=== PATIENT | female | born 1965 | race Caucasian/White ===

== ENCOUNTER 2019-12-03 08:02 | Outpatient (CLI) | payer MEDICARE, SELFPAY ==
--- NOTE | 2019-12-03 11:00 | NEURO_ITS ---
Patient Number: [id number] Impression: # Complains of difficulties in walking. 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 # Right ulnar neuropathy across the elbow. Nerve Conduction Studies Anti Sensory Summary Table Stim Site NR Peak (ms) P-T Amp (?V) Site1 Site2 Delta-P (ms) Dist (cm) Simon (m/s) Left Median Anti Sensory (2-3nd Digit) Wrist 3.1 69.4 Wrist 2-3nd Digit 3.1 14.0 45 Wrist 3.1 73.5 Wrist 2-3nd Digit 3.1 14.0 45 Right Median Anti Sensory (2-3nd Digit) Wrist 2.8 69.2 Wrist 2-3nd Digit 2.8 14.0 50 Wrist 2.9 67.5 Wrist 2-3nd Digit 2.8 14.0 50 Left Radial Anti Sensory (Base 1st Digit) Wrist 1.9 48.1 Wrist Base 1st Digit 1.9 0.0 Right Radial Anti Sensory (Base 1st Digit) Wrist 2.2 21.5 Wrist Base 1st Digit 2.2 0.0 Left Sup Fibular Anti Sensory (Ant Lat Mall) 14 cm 3.7 3.6 14 cm Ant Lat Mall 3.7 16.0 43 Right Sup Fibular Anti Sensory (Ant Lat Mall) 14 cm 3.5 12.4 14 cm Ant Lat Mall 3.5 16.0 46 Left Sural Anti Sensory (Lat Mall) Calf 4.1 9.8 Calf Lat Mall 4.1 16.0 39 Right Sural Anti Sensory (Lat Mall) Calf 3.8 6.9 Calf Lat Mall 3.8 16.0 42 Left Ulnar Anti Sensory (5th Digit) Wrist 2.6 53.9 Wrist 5th Digit 2.6 14.0 54 Right Ulnar Anti Sensory (5th Digit) Wrist 2.4 84.0 Wrist 5th Digit 2.4 14.0 58 Motor Summary Table Stim Site NR Onset (ms) O-P Amp (mV) Site1 Site2 Delta-0 (ms) Dist (cm) Simon (m/s) Left Median Motor (Abd Poll Brev) Wrist 3.9 3.2 Elbow Wrist 4.9 28.0 57 Elbow 8.8 2.0 Right Median Motor (Abd Poll Brev) Wrist 3.3 7.8 Elbow Wrist 4.7 28.0 60 Elbow 8.0 6.5 Left Peroneal Motor (Vastus Med) Ankle 4.7 1.6 Popit Ankle 10.9 41.0 38 Popit 15.6 1.2 Right Peroneal Motor (Vastus Med) Ankle 4.6 1.1 Popit Ankle 10.6 41.0 39 Popit 15.2 0.8 Left Tibial Motor (Abd Lyle Brev) Ankle 5.5 5.5 Knee Ankle 12.9 45.0 35 Knee 18.4 1.7 Right Tibial Motor (Abd Lyle Brev) Ankle 5.3 1.7 Knee Ankle 11.2 44.0 39 Knee 16.5 0.7 Left Ulnar Motor (Abd Dig Minimi) Wrist 2.5 3.8 A Elbow Wrist 5.7 32.0 56 A Elbow 8.2 3.1 Right Ulnar Motor (Abd Dig Minimi) Wrist 2.8 5.5 A Elbow Wrist 6.0 29.0 48 A Elbow 8.8 3.2 B Elbow Wrist 4.2 22.0 52 B Elbow 7.0 4.3 F Wave Studies NR F-Lat (ms) L-R F-Lat (ms) Left Median (Mrkrs) (Abd Poll Brev) 29.81 0.71 Right Median (Mrkrs) (Abd Poll Brev) 29.10 0.71 Left Peroneal (Mrkrs) (EDB) 59.18 1.05 Right Peroneal (Mrkrs) (EDB) 58.13 1.05 Left Tibial (Mrkrs) (Abd Hallucis) 60.99 1.68 Right Tibial (Mrkrs) (Abd Hallucis) 59.31 1.68 Left Ulnar (Mrkrs) (Abd Dig Min) 29.63 0.41 Right Ulnar (Mrkrs) (Abd Dig Min) 30.04 0.41 EMG Side Muscle Nerve Root Ins Act Fibs Amp Dur Recrt Comment Right 1stDorInt Ulnar C8-T1 Nml Nml Decr >12ms Reduced Right Ext Indicis Radial (Post Int) C7-8 Nml Nml Nml Nml Nml Right Ext Digitorum Radial (Post Int) C7-8 Nml Nml Decr >12ms Reduced Right BrachioRad Radial C5-6 Nml Nml Nml Nml Nml Right PronatorTeres Median C6-7 Nml Nml Nml Nml Nml Right Abd Poll Brev Median C8-T1
== END 2019-12-03 08:03 | disposition home or self-care (01) ==
PROVIDERS: PCP Family Medicine; Visit Provider Psychiatry & Neurology Neurology
DX: G62.9 Polyneuropathy, unspecified (principal); R42 Dizziness and giddiness; G56.21 Lesion of ulnar nerve, right upper limb
CPT/HCPCS: 95886; 95913

== ENCOUNTER 2020-02-18 11:44 | Outpatient (CLI) | payer MEDICARE, SELFPAY ==
[2020-02-18 12:14] LABS: Blood Urea Nitrogen 11 mg/dL (7-17); Carbon Dioxide 28 mmol/L (22-30); Chloride 101 mmol/L (98-107); Estimated Glomerular Filt Rate > 60; Glucose 174 mg/dL (65-105); Potassium 4.1 mmol/L (3.4-5.0); Sodium 136 mmol/L (137-145)
[2020-02-18 12:27] LABS: Hemoglobin A1C 7.6 % (<5.7)
[2020-02-18 13:02] LABS: Free T4 Free Thyroxine 0.86 ng/mL (0.78-2.19)
[2020-02-22 06:54] LABS: Triiodothyronine T3 Free 2.6 pg/mL (2.3-4.2)
== END 2020-02-18 11:45 | disposition home or self-care (01) ==
PROVIDERS: PCP Family Medicine; Visit Provider Family Medicine
DX: E11.9 Type 2 diabetes mellitus without complications (principal); G60.0 Hereditary motor and sensory neuropathy
CPT/HCPCS: 36415; 80048; 83036; 84439; 84443; 84481

== ENCOUNTER 2020-10-13 07:43 | Outpatient (CLI) | payer MEDICARE, SELFPAY ==
--- NOTE | ~2020-10-13 | MM_ITS ---
EXAMINATION: MM screening aida BI w marian HISTORY: Screening mammogram TECHNIQUE: Craniocaudal and mediolateral oblique 3-D tomosynthesis images were obtained and synthetic 2-D images were generated. CAD analysis was submitted and interpreted. COMPARISON: bilateral digital screening mammogram examinations BREAST PARENCHYMAL COMPOSITION: The breasts are almost entirely fatty. FINDINGS: There is no evidence of suspicious mass, calcification, or architectural distortion to sugg est malignancy in either breast. There has been no suspicious interval change. IMPRESSION: 1. No mammographic evidence of malignancy. 2. Recommend routine screening mammography in one year. BI-RADS Category 1: Negative Reviewed, dictated and finalized at location A. ET SWEEPER
--- NOTE | ~2020-10-13 | DEXA_ITS ---
Bone Density Report Name: Julia Adames Age: 55 Sex: Female Ethnicity: White Date of : 1965 Indication: postmenopausal; height loss; prior fracture; hysterectomy; Referring Provider: Denilson Garcia Study: Bone densitometry was performed. Exam Date: October 13, 2020 Accession number: [id number] Bone Density: Region BMD T-score Z-score Classification AP Spine (L1, L2, L3) 1.263 2.2 3.3 Normal Femoral Neck (Left) 0.815 -0.3 0.8 Normal Total Hip (Left) 0.882 -0.5 0.2 Normal Total Hip Bilateral Avg 0.818 -1.1 -0.3 Osteopenia Femoral Neck (Right) 0.698 -1.4 -0.3 Osteopenia Total Hip (Right) 0.752 -1.6 -0.8 Osteopenia World Health Organization criteria for BMD impression classify patients as: Normal (T-score at or above -1.0), Osteopenia (T-score between -1.0 and -2.5), or Osteoporosis (T-score at or below -2.5). 10-year Fracture Risk(1): Major Osteoporotic Fracture 10% Hip Fracture 1.2% Reported Risk Factors: [place] (), Neck BMD=0.698, BMI=39.5, previous fracture, smoking Input outside FRAX(R) limits. Adjusted to:Abhfoq=709 kg (1) FRAX(R) Version 3.08. Fracture probability calculated for an untreated patient. Fracture probability may be lower if the patient has received treatment. Clinical Information Provided by Patient: Has had a low trauma fracture Smokes Has used the following medications: Vitamin D Has the following medical conditions: Hysterectomy Patient maximum height was 72 Menopause Age: 43 No regular weight bearing exercise Drinks caffeinated beverages Onset of menses at age 9 Number of children 1 Impression: The patient has low bone mass, based on the Right Total Hip T-score. The patient has an estimated ten-year risk of hip fracture of 1.2% and an estimated ten-year risk of major fracture of 10%, based on the WHO FRAX algorithm. The patient has risk factors, including: smoking, previous fracture. Discussion: BONE DENSITY IS LOW AT ONE OR MORE SKELETAL SITES. This patient's lowest T-score is low at one or more skeletal sites. It meets the World Health Organization's (WHO) criteria for ?low bone mass? (T-score between -1.0 and -2.5). The patient's 10-year risk of fracture as calculated by FRAX is less than the threshold where pharmacological therapy is recommended by the National Osteoporosis Foundation (NOF). However, all treatment decisions require clinical judgment and consideration of individual patient factors, including patient preferences, comorbidities, previous drug use, risk factors not captured in the FRAX model (e.g., frailty, falls, vitamin D deficiency, increased bone turnover, interval significant decline in bone density) and possible under or overestimation of fracture risk by FRAX. The patient should follow a healthful lifestyle (good nutrition with adequat
== END 2020-10-13 07:44 | disposition home or self-care (01) ==
LOC: ANHIMG 07:46
PROVIDERS: PCP Physician Assistant; Visit Provider Physician Assistant
DX: Z12.31 Encounter for screening mammogram for malignant neoplasm of breast (principal); Z78.0 Asymptomatic menopausal state; M85.89 Other specified disorders of bone density and structure, multiple sites
CPT/HCPCS: 77063; 77067; 77080

== ENCOUNTER 2021-04-27 09:04 | Outpatient (CLI) | payer MEDICARE, SELFPAY ==
--- NOTE | 2021-04-30 15:56 | WPDSLEEPSTUD ---
Sleep Study Date of Study: 04/27/21 Ordering Provider: Darcy Mckeon MD Interpreting Physician: Flores Luna MD Sleep Study Type: CPAP Titration Height: 1.78 m Weight: 133.326 kg Body Mass Index: 42.1 Neck Circumference (inches): 19 [place]: 6 Reason for Sleep Study HST from [facility] showing mild obstructive sleep apnea with an AHI 9.8, minimum saturation 86%, and 72 minutes or 28% of the study spent below 88%. She presents for a CPAP titration. Sleep History Julia Adames is a 56 year old female with sleep testing that shows obstructive sleep apnea. No sleep questionnaire was completed. She has multiple medical co-morbidities including diabetes with peripheral neuropathy, Jpkmgcs-Icibt-Fmyrv muscular atrophy, hypertension. [facility] Past Medical History Medical History Asthmatic bronchitis (~09/2017) Charcot Romi Tooth muscular atrophy Chronic pain Depression Dizziness Resolved currently. Has appointment with neurology in September. ENT was unable to pinpoint a HEENT issue to her problem. Call for any worsening issues Frequent falls Hyperkalemia Hyperlipidemia Hypertension Hyponatremia Otitis media (~07/2018) Peripheral neuropathy Type 2 diabetes mellitus URI, acute (~05/2019) Urinary symptom or sign Surgical History Surgical History H/O total hysterectomy (~2009) History of total knee arthroplasty (~12/2015) right knee Hx of cataract extraction (~2020) - both eyes Hx of section (~07/2003) Hx of total knee arthroplasty (~02/2016) left knee Family History Family History Mother Family history of hypercholesterolemia Sibling Family history of cardiovascular disease Social History Social History Smoking status: Never smoker Tobacco type: e-cigarettes/vaping Second hand tobacco smoke exposure: Yes Alcohol intake: never Substance use: never Substance use type: does not use Gender identity (if verbalized by the patient): Female Medications Home Medications Medication Instructions Recorded Confirmed Type albuterol sulfate 90 mcg/actuation 1 inhalation INHALATION Q4H #6.7 gm 11/01/19 08/06/21 Rx aerosol inhaler calcium carbonate 400 mg calcium 400 mg PO DAILY 03/08/21 04/28/21 History (1,000 mg) chewable tablet cholecalciferol (vitamin D3) 125 125 mcg PO DAILY 03/08/21 04/28/21 History mcg (5,000 unit) capsule multivitamin 1 tablet PO DAILY 03/08/21 04/28/21 History naloxone 4 mg/actuation nasal spray 1 spray INTRANASAL Q3M PRN #2 ea 03/10/21 04/28/21 Rx pioglitazone 45 mg tablet 45 mg PO DAILY #90 tablet 03/28/21 04/28/21 Rx alcohol swabs 1 pad TOPICAL DAILY #100 ea 04/14/21 04/28/21 Rx atorvastatin 40 mg tablet 40 mg PO DAILY #90 tablet 04/14/21 04/28/21 Rx blood glucose control, normal #1 ea 04/14/21 04/28/21 Rx blood sugar diagnostic #100 ea 04/14/21 04/28/21 Rx blood-glucose meter #1 ea 04/14/21 04/28/21 Rx citalopram 40 mg tablet 40 mg PO DAILY #90 tablet 04/14/21 04/28/21 Rx cyclobenzaprine 10 mg tablet 10 mg PO TID PRN #90 tablet 04/14/21 04/28/21 Rx gabapentin 300 mg capsule 900 mg PO .QHS #270 cap 04/14/21 04/28/21 Rx lancets 33 gauge #100 ea 04/14/21 04/28/21 Rx metformin 500 mg tablet,extended See Rx Instructions .ROUTE 04/14/21 04/28/21 Rx release 24 hr .COMPLEX #360 tablet potassium chloride 10 mEq 10 meq PO BID #180 tablet 04/14/21 04/28/21 Rx tablet,extended release hydromorphone 8 mg tablet 8 mg PO TID #90 tablet 04/24/21 04/28/21 Rx hydromorphone 2 mg tablet 4 mg PO .HS #90 tablet 04/28/21 04/28/21 Rx glimepiride 2 mg tablet 2 mg PO QAM #90 tablet 05/01/21 Rx Sleep Procedure This test was performed using the [employer] multiple channel system including EOG, EEG, submental EMG, EKG, nasal and oral air
[2021-05-01 10:25] VITALS: BMI 42.1
== END 2021-04-28 05:08 | disposition home or self-care (01) ==
LOC: ANHCSM 09:06
PROVIDERS: PCP Family Medicine; Visit Provider Family Medicine
DX: G47.33 Obstructive sleep apnea (adult) (pediatric) (principal)
CPT/HCPCS: 95811

== ENCOUNTER 2022-02-22 09:20 | Outpatient (CLI) | payer MEDICARE, SELFPAY ==
--- NOTE | 2022-02-22 16:24 | WPDSIXMINUTE ---
Six Minute Walk Procedure Procedure Performed Pulmonary Stress Test (6 min walk) Six Minute Walk Six Minute Walk: This is a 6 minute walk test. The test was performed and interpreted in accordance with the 2014 ERS/ATS task force guidelines. Of note the patient used a wheeled walker. Findings: The patient's resting room air oxygen saturation measured by pulse oximetry was 94% and heart rate was 89 bpm. Patient ambulated for 335 meters and oxygen saturation remained 91 to 94%. Heart rate at the end of the study was 120 bpm. The patient did not qualify for supplemental oxygen at rest or with ambulation. There are no prior studies for comparison.
--- NOTE | 2022-02-22 16:25 | WPDPFTINT ---
PFT Procedure Performed PFT Procedure Performed Spirometry with Pre/Post Bronchodilator Plethysmography (Lung Vol) Diffusing Cap (DLCO) Flow Vol Loop PFT Interpretation This is a pulmonary function test with pre and post-bronchodilator spirometry, plethysmography and diffusing capacity. The test was performed and results interpreted in accordance with the 2019 and 2005 ATS/ERS Task Force guidelines respectively using the Global Lung Function Initiative-2012 reference equations. Patient demonstrated good effort and cooperation. Reproducibility criteria were met. The quality of the pre bronchodilator spirometry maneuver was Grade A and post bronchodilator spirometry maneuver was Grade A. Findings: Spirometry: The contour the inspiratory and expiratory flow tracing are normal. The pre bronchodilator FVC is 3.33 L, 83% predicted. The pre bronchodilator FEV1 is 2.65 L, 85% predicted. The pre bronchodilator FEV1: FVC ratio 79%. The post bronchodilator FVC is 3.17 L, representing a 5% decrease. The post bronchodilator FEV1 is 2.64 L, representing no change. The post bronchodilator FEV1 is 83%. Plethysmography: The total lung capacity is 4.84 L, 81% predicted. The functional residual capacity is 1.83 L, 54% predicted. The residual volume is 1.29 L, 58% predicted. Diffusing capacity: The diffusing capacity unadjusted for hemoglobin and carboxyhemoglobin is 21.1, 87% predicted. The diffusing capacity adjusted for alveolar volume is 4.30, 102% predicted. Impression: There is a mild restrictive ventilatory abnormality with a normal FEV1. The spirometry is normal without evidence of an obstructive abnormality. There is no significant improvement after inhaling a single dose of albuterol. The diffusing capacity is normal. There are no prior studies for comparison
== END 2022-02-22 09:21 | disposition home or self-care (01) ==
LOC: ANHPFT 09:20
PROVIDERS: PCP Family Medicine; Visit Provider Internal Medicine Critical Care Medicine
DX: R06.02 Shortness of breath (principal)
CPT/HCPCS: 94060; 94726; 94729

== ENCOUNTER 2023-02-13 09:26 | Outpatient (CLI) | payer MEDICARE, SELFPAY ==
--- NOTE | ~2023-02-13 | XR_ITS ---
EXAMINATION: XR barium swallow DATE: 02/13/2023 10:05 INDICATION: Dysphagia. Acid reflux. Vomiting. TECHNIQUE: The patient drank thick barium, gas-producing crystals, and thin barium. Fluoroscopy of th e hypopharynx and esophagus was performed. Fluoroscopy exposure time was 0.5 minutes. The total numbe r of images was 249. The dose-area product was 2.206 Gy-cm^2. COMPARISON: CT abdomen and pelvis 01/27/2013 FINDINGS: There is no mass or stricture of the esophagus. Esophageal motility is normal. There is a s mall sliding hiatal hernia. There was gastroesophageal reflux with provocative maneuvers. Epidural el ectrodes are noted. IMPRESSION: 1. Small sliding hiatal hernia. 2. Gastroesophageal reflux with provocative maneuvers. Reviewed, dictated and finalized at location E.
== END 2023-02-13 09:27 | disposition home or self-care (01) ==
PROVIDERS: PCP Family Medicine; Visit Provider Physician Assistant Medical
DX: R13.10 Dysphagia, unspecified (principal); K44.9 Diaphragmatic hernia without obstruction or gangrene; K21.9 Gastro-esophageal reflux disease without esophagitis
CPT/HCPCS: 74220

== ENCOUNTER 2023-03-15 07:45 | Outpatient (CLI) | payer MEDICARE, SELFPAY ==
--- NOTE | ~2023-03-15 | NM_ITS ---
EXAM: NM gastric emptying study DATE: 03/15/2023 13:47 CDT INDICATION: Vomiting. Reflux. Early satiety. TECHNIQUE: A gastric emptying study was performed using the methodology of Jenni CARDOZA, et al. J Nucl Med 2007; 48:568-572. The patient was given a meal consisting of 2 scrambled eggs labeled with 0.972 mCi Tc-99m sulfur colloid, 2 slices of toast, two packages of jam, and approximately 120 mL of water . Simultaneous anterior and posterior 1-min images of the abdomen were obtained with the patient supi ne at multiple time points over a total period of 4 hours. The geometric mean of anterior and posteri or views was determined, and the percentage retention was calculated for each time point. COMPARISON: CT dated 01/27/2013 and barium swallow dated 02/13/2023. FINDINGS: Gastric retention of the radiotracer-labeled meal was 55%, 51%, and 28% at the 1-hour, 2-h our, and 4-hour time points, respectively. With this technique, apparent rapid gastric emptying is alvarez ggested by <30% gastric retention at 1 hour. Delayed gastric emptying is defined by gastric retention of >90% at 1 hour, >60% retention at 2 hours, or >10% retention at 4 hours. IMPRESSION: 1. Delayed gastric emptying. Reviewed, dictated and finalized at location []
== END 2023-03-15 07:46 | disposition home or self-care (01) ==
PROVIDERS: PCP Family Medicine; Visit Provider Nurse Practitioner
DX: K21.9 Gastro-esophageal reflux disease without esophagitis (principal); K30 Functional dyspepsia; R11.10 Vomiting, unspecified
CPT/HCPCS: 78264; A9541

== ENCOUNTER 2023-03-15 13:06 | Observation (INO) | payer MEDICARE, SELFPAY ==
[2023-03-15] VITALS (9 sets, daily range): BP systolic 110–134; BP diastolic 59–88; PULSE 71–108; RESP 16–18; TEMP 36.4–36.9; O2SAT 97–100
--- NOTE | ~2023-03-15 | CT_ITS ---
EXAMINATION: CT thoracic lumbar wo con DATE: 03/15/2023 14:57 INDICATION: Back pain, numbness . TECHNIQUE: Computed tomography (CT) of the thoracic and lumbar spine was performed without intravenou s contrast. Automated exposure control and iterative reconstruction technique were employed. The dose -length product was 1973.45 mGy-cm. COMPARISON: MR lumbar spine 03/07/2015 CT abdomen pelvis 01/27/2013; CT T-spine 10/21/2008. FINDINGS: THORACIC SPINE: 12 mm right thyroid nodule, which requires no additional workup at this time. Coronary artery calcifi cations. Moderate hiatal hernia. Stimulator pack to the right of midline, leads enter the canal at T1 2-L1 and terminate at the T6-7 level. 10 rib bearing thoracic type vertebral bodies. Vertebral body alignment intact. Mild scoliosis. Mild anterior wedge deformity at T11, stable. Remaining vertebral body heights are maintained. Multilevel mild and moderate disc space narrowing and marginal osteophytosis, including bridging osteophytes. Mi ld multilevel mid and lower thoracic facet arthropathy. No traumatic malalignment or fracture. No sev ere central canal or neural foraminal narrowing. Visualized lung parenchyma is clear. LUMBAR SPINE: Moderate lumbar scoliosis. 5 nonrib-bearing lumbar-type vertebral bodies. Pedicles intact. Normal femi tebral body alignment. Vertebral body heights preserved. Exaggerated lumbar lordosis. 2 mm retrolisth esis at L2-3, stable. Multilevel disc space narrowing and marginal osteophytosis, severe at L4-5 and L5-S1. Moderate mid and lower lumbar facet arthropathy, with interspinous narrowing at L3-4. Severe r ight neural foraminal narrowing at L5-S1. No severe central canal narrowing. Bilateral SI joint osteo arthritis. IMPRESSION: 1. No acute fracture or traumatic malalignment detected in the thoracic or lumbar spine. 2. Severe right neural foraminal narrowing at L5-S1. 3. No severe central canal narrowing. Reviewed, dictated and finalized at location K. IMPRESSION: 1. No acute fracture or traumatic malalignment detected in the thoracic or lumb ar spine. 2. Severe right neural foraminal narrowing at L5-S1. 3. No severe central canal narrowing.
--- NOTE | 2023-03-15 14:11 | ED.BACK ---
HPI - Back Pain/Injury General Chief Complaint: Back Pain/Injury Stated Complaint: back injury Time Seen by Provider: 03/15/23 13:35 History of Present Illness HPI Narrative: This is a 58-year-old female with past history of Ilmxxxx-Vdaez-Aermz disease, who presents to the emergency department complaining of bilateral lower extremity weakness for the past week and a half. The patient states week and half ago, she noticed bilateral leg weakness with standing, leading to 6 falls. She denies head injury or loss of consciousness. She also complains of an area of numbness extending from the mid abdomen to the proximal thighs, worse on the right. She denies fevers, back pain, loss of bowel or bladder control, other weakness of the back while sitting, rash or other complaints. She denies recent change in medications or trauma. Related Data Home Medications Medication Instructions Recorded Confirmed calcium carbonate 400 mg calcium 400 mg PO DAILY 03/08/21 03/04/23 (1,000 mg) chewable tablet (Antacid Ultra Strength) cholecalciferol (vitamin D3) 125 125 mcg PO DAILY 03/08/21 03/04/23 mcg (5,000 unit) capsule multivitamin 1 tablet PO DAILY 03/08/21 03/04/23 Allergies Allergy/AdvReac Type Severity Reaction Status Date / Time Penicillins Allergy Unknown Unknown Verified 03/04/23 14:23 Review of Systems Review of Systems: CONSTITUTIONAL: Denies fever, chills, or sweats. CARDIOVASCULAR: Denies chest pain, palpitations, or edema. RESPIRATORY: Denies cough or dyspnea. GASTROINTESTINAL: Denies abdominal pain, nausea, vomiting, or diarrhea. GENITOURINARY: Denies dysuria or hematuria. SKIN: Denies rash or itching. MUSCULOSKELETAL: Denies back pain, joint pain, or myalgia. NEUROLOGIC: Bilateral lower extremity weakness with standing, numbness from the mid abdomen to the proximal thigh denies headache, dizziness, PSYCHIATRIC: Denies anxiety or depression. [facility] Past Medical History Medical History (Updated 03/15/23 @ 17:55 by Kim Chavez PA-C) Tcnwxbk-Fctef-Qnluq disease Chronic pain Chronic, continuous use of opioids Depression Frequent falls Gastroesophageal reflux disease History of tobacco abuse Hyperlipidemia Hypertension Peripheral neuropathy Type 2 diabetes mellitus Surgical History Surgical History (Updated 03/15/23 @ 17:55 by Kim Chavez PA-C) History of arthroplasty of left knee (02/2016) History of arthroplasty of right knee (12/2015) History of bilateral cataract extraction (2020) History of section (07/2003) History of total hysterectomy (2009) Family History Family History Mother Family history of hypercholesterolemia Skin cancer Sibling Family history of cardiovascular disease Father Malignant neoplasm of prostate Social History Social History (Updated 03/15/23 @ 17:56 by Kim Chavez PA-C) Social History: Surrogate medical decision maker: La Nena Adames, daughter. Code status: Full code. Smoking packs per day: 1 Smoking cigarettes per day: 20.0 Years smoked: 15 Smoking pack-years: 15.00 Smoking status: Former smoker Second hand tobacco smoke exposure: Yes Additional smoking assessment comments: Quit cigarretes about 4 years ago, then went to e-cigs Alcohol intake: never Substance use: never Substance use type: does not use Lack of Transportation: No Lack of Food: Never True Current Housing: I Have Housing Concerned About Future Housing: No Difficulty Paying Gas/Electric Bills: YES Difficulty Paying for Meds: YES Currently Unemployed: YES Education: High School Diploma/GED Difficulty w/ Childcare or Family Care: No Living arrangements: with family Additional living arrangements comments: Lives in [place]. Additional occupation/education comments: Disabled. Spiritual care concerns: No Agree to blood products: Yes Exam Narrative:
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
--- NOTE | 2023-03-15 18:26 | ADMGEN ---
This patient, Julia Adames, was admitted to Medical Room 342-01. Patient/family oriented to hospital policies and general routines including ID bracelet, bed and alarms, visiting hours, pain management, procedures, bathroom and other care routines, personal items, smoking policy, room service/diet, and visiting hours. Information on how to activate the Rapid Response Team has been discussed. Patient/Family are encouraged to report perceived risks to care and to ask questions if they do not understand what they are told or what they should do.
[2023-03-15 18:45] LABS: Basophils Absolute Auto 0.1 K/mm3 (0.0-0.1); Basophils Percent Auto 0.6 % (0.2-1.2); Eosinophils Absolute Auto 0.1 K/mm3 (0-0.3); Eosinophils Percent Auto 1.3 % (0-4.4); Hematocrit 37.9 % (37.0-47.0); Hemoglobin 12.5 g/dL (12.0-15.0); Immature Granulocyte Absolute 0.07 K/mm3 (0.00-0.031); Immature Granulocyte Percent A 0.7 % (0-0.5); Lymphocytes Absolute Auto 3.61 K/mm3 (0.9-3.2); Lymphocytes Percent Auto 37.4 % (18.3-44.2); Mean Corpuscular Hemoglobin 30.6 pg (26-34); Mean Corpuscular Volume 92.9 fl (80-100); Mean Platelet Volume 9.6 fl (7.4-10.4); Monocytes Absolute Auto 0.7 K/mm3 (0.1-0.6); Monocytes Percent Auto 7.7 % (2.6-8.5); Neutrophils Percent Auto 52.3 % (45.5-73.1); Platelet Count Result 374 k/mm3 (150-375); Red Blood Count 4.08 M/mm3 (4.2-5.4); White Blood Count 9.7 K/mm3 (4.5-10.0)
[2023-03-15 18:51] LABS: Erythrocyte Sedimentation Rate 21 mm/hr (0-20)
[2023-03-15 19:42] LABS: Alanine Aminotransferase 62 U/L (6-35); Albumin Level 3.7 g/dL (3.5-5.1); Alkaline Phosphatase 82 U/L (38-126); Anion Gap 5 mmol/L (8-16); Aspartate Amino Transferase 291 U/L (14-36); Bilirubin,Total 0.7 mg/dL (0.2-1.3); Blood Urea Nitrogen 14 mg/dL (7-17); Calcium 8.9 mg/dL (8.4-10.2); Carbon Dioxide 33 mmol/L (22-30); Chloride 97 mmol/L (98-107); Estimated CRCL calculation 129 ml/min; Estimated Glomerular Filt Rate > 60; Glucose 118 mg/dL (65-110); Potassium 4.3 mmol/L (3.4-5.0); Sodium 135 mmol/L (137-145)
[2023-03-15 21:51] LABS: Creatine Kinase 759 U/L (30-135)
[2023-03-15 22:03] LABS: Hemoglobin A1C 5.7 % (<5.7)
[2023-03-15 22:13] LABS: Glucose Point of Care 144 mg/dl (65-105)
[2023-03-15] MEDS: GABAPENTIN 300 MG CAPSULE 900 MG PO (22:39)
[2023-03-15] MEDS: METOCLOPRAMIDE HCL 5 MG TABLET PO (22:40)
[2023-03-15] MEDS: HYDROmorphone HCL (*CRX) 4 MG TABLET PO (22:42)
[2023-03-15] MEDS: ALBUTEROL SULFATE (*SP) AEROSOL 1 PUFF INHALATION (23:46)
[2023-03-16] VITALS (10 sets, daily range): BP systolic 103–131; BP diastolic 49–80; PULSE 93–105; RESP 14–78; TEMP 36.1–36.6; O2SAT 90–100
[2023-03-16] MEDS: HYDROmorphone HCL (*CRX) 4 MG TABLET 8 MG PO ×2 (05:38→16:52)
[2023-03-16] MEDS: METOCLOPRAMIDE HCL 5 MG TABLET PO ×4 (05:42→20:44)
[2023-03-16 06:24] LABS: Basophils Absolute Auto 0.1 K/mm3 (0.0-0.1); Basophils Percent Auto 0.6 % (0.2-1.2); Eosinophils Absolute Auto 0.2 K/mm3 (0-0.3); Eosinophils Percent Auto 1.5 % (0-4.4); Hematocrit 37.2 % (37.0-47.0); Hemoglobin 12.1 g/dL (12.0-15.0); Immature Granulocyte Absolute 0.05 K/mm3 (0.00-0.031); Immature Granulocyte Percent A 0.5 % (0-0.5); Lymphocytes Absolute Auto 4.37 K/mm3 (0.9-3.2); Lymphocytes Percent Auto 44.9 % (18.3-44.2); Mean Corpuscular HGB Conc 32.5 g/dl (32-36); Mean Corpuscular Hemoglobin 30.3 pg (26-34); Mean Platelet Volume 9.6 fl (7.4-10.4); Monocytes Absolute Auto 0.7 K/mm3 (0.1-0.6); Monocytes Percent Auto 7.6 % (2.6-8.5); Neutrophils Absolute Auto 4.4 K/mm3 (1.3-6.7); Neutrophils Percent Auto 44.9 % (45.5-73.1); Platelet Count Result 387 k/mm3 (150-375); White Blood Count 9.7 K/mm3 (4.5-10.0)
[2023-03-16 06:33] LABS: Alanine Aminotransferase 63 U/L (6-35); Albumin Level 3.7 g/dL (3.5-5.1); Alkaline Phosphatase 78 U/L (38-126); Anion Gap 4 mmol/L (8-16); Aspartate Amino Transferase 300 U/L (14-36); Bilirubin,Total 0.7 mg/dL (0.2-1.3); Blood Urea Nitrogen 12 mg/dL (7-17); Calcium 8.9 mg/dL (8.4-10.2); Carbon Dioxide 32 mmol/L (22-30); Chloride 102 mmol/L (98-107); Creatine Kinase 970 U/L (30-135); Estimated CRCL calculation 129 ml/min; Estimated Glomerular Filt Rate > 60; Glucose 107 mg/dL (65-110); Potassium 3.8 mmol/L (3.4-5.0); Sodium 138 mmol/L (137-145)
[2023-03-16 08:16] LABS: Glucose Point of Care 125 mg/dl (65-105)
[2023-03-16] MEDS: SODIUM CHLORIDE 0.9% IV 1,000 ML 999 ML IV CONT (08:43)
[2023-03-16] MEDS: MULTIVITAMINS THERAPEUTIC TAB (*BKC) 1 TABLET PO (08:45)
[2023-03-16] MEDS: POTASSIUM CHLORIDE 10 MEQ ER TABLET PO ×2 (08:46→16:54)
[2023-03-16] MEDS: CHOLECALCIFEROL 1,000 UNITS TABLET 5000 UNITS PO (08:46)
[2023-03-16] MEDS: CALCIUM CARBONATE (TUMS) 500 MG (200 MG ELEMENTAL) 400 MG BY MOUTH (08:46)
[2023-03-16] MEDS: GABAPENTIN 300 MG CAPSULE PO (08:46)
[2023-03-16] MEDS: CITALOPRAM HYDROBROMIDE 20 MG TABLET 40 MG PO (08:46)
[2023-03-16] MEDS: PIOGLITAZONE HCL 45 MG TABLET PO (08:46)
[2023-03-16] MEDS: SODIUM CHLORIDE 0.9% IV 1,000 ML 200 ML IV CONT ×2 (10:30→16:58)
--- NOTE | 2023-03-16 10:36 | PM.IMPN ---
Progress Note: A&P Assessment and Plan (1) Bilateral leg weakness: Code(s): R29.898 - Other symptoms and signs involving the musculoskeletal system Status: Acute (2) Low back pain: Qualifiers: Back pain laterality: unspecified Chronicity: chronic Sciatica presence: unspecified whether sciatica present Qualified Code(s): M54.50 - Low back pain, unspecified; G89.29 - Other chronic pain Code(s): M54.5 - Low back pain Status: Acute (3) Peripheral neuropathy: Qualifiers: Peripheral neuropathy type: polyneuropathy, other Qualified Code(s): G62.89 - Other specified polyneuropathies Code(s): G62.9 - Polyneuropathy, unspecified Status: Acute Assessment and Plan: Suspected worsening diabetic neuropathy in lower extremities and new diagnosis gastroparesis. Will check labs including repeat CMP, lipase, amylase, folic acid, B12 and RPR. (4) Diabetes: Qualifiers: Diabetes mellitus complication detail: with polyneuropathy Diabetes mellitus complication status: with neurologic complications Code(s): E11.9 - Type 2 diabetes mellitus without complications Status: Acute Assessment and Plan: Diabetes with peripheral neuropathy and newly identified gastroparesis, will manage with Accu-Cheks and low-dose correction. (5) Chronic, continuous use of opioids: Code(s): F11.90 - Opioid use, unspecified, uncomplicated Status: Acute Assessment and Plan: Patient is on chronic Dilaudid dosing which we will continue while hospitalized. (6) Gastroparesis due to DM: Code(s): E11.43 - Type 2 diabetes mellitus with diabetic autonomic (poly)neuropathy; K31.84 - Gastroparesis Status: Acute Assessment and Plan: Patient reports recent gastric emptying study completed indicative gastroparesis. Patient was newly started on metoclopramide before meals which will continue in the hospital. (7) Transaminitis: Code(s): R74.01 - Elevation of levels of liver transaminase levels Status: Acute Assessment and Plan: Rising ALT AST on trend labs. Obtain amylase, lipase. Will repeat CMP daily. (8) Elevated CK: Code(s): R74.8 - Abnormal levels of other serum enzymes Status: Acute Assessment and Plan: Creatinine kinase elevated. Patient has had multiple falls with scattered bruising but no prolonged immobilization or severe trauma. CK was increased from 1st blood draw to 2nd and remained stable 2nd to 3rd draw. Discontinue atorvastatin. Plan Consult with Neurology Dr. Lord and Neurosurgery Dr. Nunez Obtain MRI thoracic and lumbar spine per neurology Continue home medications IV fluids for rising creatinine kinase, reassess with morning labs Time Spent With Patient Time with patient: Greater than 35 minutes Subjective Date/time seen: 03/16/23 09:30 Interval history: Patient admitted to the hospital overnight due to lower extremity weakness causing multiple falls. Patient reports this morning that her legs feel more equally weak where as yesterday the right side felt weaker. Patient reports that with assistance she is able to get to the bedside commode. Patient reports that she did not bring her BiPAP machine so she had trouble sleeping throughout the night. Patient reports that her oral intake is better since starting on metoclopramide the last couple days after gastric emptying study was completed indicating gastroparesis. Labs reviewed and patient noted to have elevated CK level that jonny on repeat as well as transaminitis with slightly increasing values. The patient denies significant trauma but states she has had decreased oral intake due to frequent vomiting. Patient reports this is been better since starting metoclopramide couple days ago. Below copied from Previous Chart: This is a 58-year-old female with Zzgzoxl-Fcvai-Azqcc disease, chronic pain syndrome on narcotics, type 2 diab
[2023-03-16 10:38] LABS: Appearance Urine Cloudy (Clear); Bacteria Urine 4+ /hpf; Bilirubin Urine Negative (Negative); Blood Urine Negative (Negative); Color Urine Yellow (Yellow); Glucose Urine UA Negative (Negative); Ketones Urine Negative (Negative); Leukocyte Esterase Ur 2+ LEU/UL (NEGATIVE); Nitrate Urine Positive (Negative); Non Pathogenic Casts 0-2; Protein Urine Negative (Negative); RBC Urine 0-2 /hpf (0-2); Specific Grav Ur 1.012 (1.001-1.035); Squamous Epithelial Cell Urine Occasional /hpf (Few)
[2023-03-16 10:40] LABS: Add Urine Microscopic? YES
--- NOTE | 2023-03-16 10:44 | WPDNEURCNPN ---
Assessment and Plan Assessment and plan (1) Bilateral leg weakness: Code(s): R29.898 - Other symptoms and signs involving the musculoskeletal system Status: Acute (2) Low back pain: Code(s): M54.5 - Low back pain Status: Acute (3) Peripheral neuropathy: Code(s): G62.9 - Polyneuropathy, unspecified Status: Acute (4) Diabetes: Code(s): E11.9 - Type 2 diabetes mellitus without complications Status: Acute Plan Ms. Adames is a 58 year old female with a history of chronic back pain, DM, peripheral neuropathy, HTN, HLD presenting due to lower extremity weakness. 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 I do not see any features of typical CMT on patient -- no hammer toes, distal weakness, areflexia, reduced muscle bulk. EMG/NCS findings are nonspecific for axonal neuropathy. She certainly could have diabetic neuropathy, but this is unrelated to her current presentation of lower extremity weakness. No ascending symptoms or worsening sensory changes to suggest Guillain Dawson syndrome. She has questionable sensory level on exam around T10, so it is worth ruling out transverse myelitis, although I think the etiology of her lower extremity weakness is likely mechanical/pain related. She was on a statin and has elevated CK, that has up trended so statin induced weakness is also a possibility, but again less likely given she was able to recognize inciting event that led to her symptoms. - Will obtain MRI thoracic and lumbar spine with and without contrast - Neurosurgery has been consulted -- appreciate input - Agree with discontinuation of statin - Will need to send CMT genetic testing as outpatient - PT evaluation Consult date: 03/16/23 Time Seen: 10:45 Reason for consult: Lower extremity weakness HPI: Julia Adames is a 58 year old female with a history of diabetes mellitus, type 2, peripheral neuropathy, chronic back pain s/p spinal stimulator, HTN, and HLD presenting due to lower extremity weakness. Patient has been seen by pain management and has been participating in physical therapy. On 01/13/23 she was doing ab exercises with weights, when she suddenly felt pain in her lower back while in flexion of back. Patient immediately felt that her legs were weaker and noted some difficulty trying to walk to the bathroom. She felt that her legs were overall weaker since that moment (more so proximally). She has had progression of this weakness since then, but denies any ascending symptoms. She can walk intermittently, but suddenly her legs can give out. She has baseline numbness in her upper and lower extremities, but she does not feel that this has worsened since December. She denies any bowel or bladder incontinence. She has been falling intermittently and has required more support while walker. On 01/18/23 she had an MRI of her lumbar spine done which showed degenerated bulging disc at L4-L5 and L5-S1, milder L3-L4. No lumbar disc herniation central or lateral recess stenosis. Mild bilateral foraminal stenosis at L5-S1 and left L4-L5 from disc osteophyte without root impingement . She was supposed to see a Neurosurgeon but has not been able to yet. When she presented to the emergency room yesterday she had a CT thoracic and lumbar spine which showed no acute fracture or misalignment, but did show severe R neural foraminal narrowing at L5-S1. Patient reports that she is still having some lower back pain but it is not significant. She also has pain in her hips and knees (history of bilateral knee replacements). She had her spinal stimulator placed in 2016. She has not had any other spinal surgeries. 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 Patient reports that she has always had problems with her legs, even as a child. She was diagnosed with Charcot joint, presumably secondary to diabetes in 2008. She was seen by Dr. Zuniga and had an EM
[2023-03-16] MEDS: ALBUTEROL SULFATE (*SP) AEROSOL 1 PUFF INHALATION ×2 (11:21→21:27)
[2023-03-16 12:10] LABS: Glucose Point of Care 127 mg/dl (65-105)
[2023-03-16 12:12] LABS: Monoscreen Negative (Negative); Negative Monotest Control Negative (Negative); Positive Monotest Control Positive (Positive)
[2023-03-16] MEDS: NICOTINE (*PBKC) 21 MG PATCH 1 PATCH TRANSDERM (13:40)
[2023-03-16 14:33] LABS: Amylase 38 U/L (30-110); Creatine Kinase 929 U/L (30-135); Lipase 158 U/L (23-300)
[2023-03-16] MEDS: metFORMIN HCL XR 500 MG TAB.SR.24H 2000 MG BY MOUTH (16:53)
[2023-03-16 16:55] LABS: Alanine Aminotransferase 56 U/L (6-35); Albumin Level 3.2 g/dL (3.5-5.1); Alkaline Phosphatase 66 U/L (38-126); Anion Gap 3 mmol/L (8-16); Aspartate Amino Transferase 246 U/L (14-36); Bilirubin,Total 0.4 mg/dL (0.2-1.3); Blood Urea Nitrogen 12 mg/dL (7-17); Calcium 8.6 mg/dL (8.4-10.2); Carbon Dioxide 29 mmol/L (22-30); Chloride 104 mmol/L (98-107); Estimated CRCL calculation 110 ml/min; Estimated Glomerular Filt Rate > 60; Glucose 147 mg/dL (65-110); Potassium 3.7 mmol/L (3.4-5.0); Sodium 136 mmol/L (137-145)
[2023-03-16 17:20] LABS: Glucose Point of Care 124 mg/dl (65-105)
[2023-03-16 18:01] LABS: Folic Acid 10.2 ng/mL (2.76->20)
--- NOTE | 2023-03-16 19:15 | PM.TDS ---
Transfer Discharge Sum: Prov Provider Date of admission: 03/15/23 16:54 Primary care physician: Darcy Mckeon MD Admitting clinician: Gibran Cody MD Consults: 03/15/23 16:55 Consult to Physician Routine Comment: Consulting Provider: Chula Nunez Reason for consultation: Bilateral lower extremity weakness Has provider been notified: Yes 03/16/23 Consult to Physician Routine Comment: Consulting Provider: Abigail Lord Reason for consultation: Bilateral leg weakness Has provider been notified: Yes Attending physician on discharge: Rigoberto Rawls Discharging clinician: Rigoberto Rawls Anticipated date of transfer: 03/16/23 Receiving physician/facility: Dr. Martinez at [facility] Transfer Discharge Sum: Med Medications Active and Home Medications: Home Medications calcium carbonate 400 mg calcium (1,000 mg) chewable tablet (Antacid Ultra Strength) 400 mg PO DAILY 03/08/21 [History Confirmed 03/15/23] cholecalciferol (vitamin D3) 125 mcg (5,000 unit) capsule 125 mcg PO DAILY 03/08/21 [History Confirmed 03/15/23] multivitamin 1 tablet PO DAILY 03/08/21 [History Confirmed 03/15/23] metformin 500 mg tablet,extended release 24 hr See Rx Instructions .Route .COMPLEX #360 tabs 05/05/22 [Rx Confirmed 03/15/23] citalopram 40 mg tablet 40 mg PO DAILY #90 tabs 08/08/22 [Rx Confirmed 03/15/23] glimepiride 2 mg tablet 2 mg PO QAM #90 tabs 08/22/22 [Rx Confirmed 03/15/23] pioglitazone 45 mg tablet 45 mg PO DAILY #90 tabs 09/22/22 [Rx Confirmed 03/15/23] potassium chloride 10 mEq tablet,extended release 10 meq PO BID #180 tabs 12/24/22 [Rx Confirmed 03/15/23] albuterol sulfate 90 mcg/actuation aerosol inhaler (Ventolin HFA) 1 inh inhalation Q4H #6.7 grams 01/01/23 [Rx Confirmed 03/15/23] gabapentin 300 mg capsule See Rx Instructions PO .COMPLEX #120 caps 01/06/23 [Rx Confirmed 03/15/23] atorvastatin 40 mg tablet 40 mg PO DAILY #90 tabs 01/27/23 [Rx Confirmed 03/15/23] cyclobenzaprine 10 mg tablet See Rx Instructions .Route .COMPLEX #90 tabs 02/17/23 [Rx Confirmed 03/15/23] hydromorphone 4 mg tablet 4 mg PO QHS #30 tabs 02/21/23 [Rx Confirmed 03/15/23] hydromorphone 8 mg tablet 8 mg PO BID #60 tabs 02/21/23 [Rx Confirmed 03/15/23] naloxone 4 mg/actuation nasal spray 1 spray intranasal Q3M PRN opioid overdose #2 ea 02/21/23 [Rx Confirmed 03/15/23] semaglutide 1 mg/dose (4 mg/3 mL) subcutaneous pen injector 1 mg (0.75 mL) subcut WEEKLY #3 mL 03/03/23 [Rx Confirmed 03/15/23] metoclopramide HCl 5 mg tablet (Reglan) 5 mg PO ACHS 30 days #120 tabs 03/15/23 [Rx Confirmed 03/15/23] Active Medications Albuterol (Albuterol Sulfate (*Sp) Aerosol 1 Puff) 1 puff INHALATION QIDRT [facility] Calcium Carbonate (Calcium Carbonate (Tums) 500 Mg (200 Mg Elemental)) 400 mg BY MOUTH DAILY [facility] Last Admin: 03/16/23 08:46 Dose: 400 mg Citalopram Hydrobromide (Citalopram Hydrobromide 20 Mg Tablet) 40 mg PO DAILY [facility] Last Admin: 03/16/23 08:46 Dose: 40 mg Cyanocobalamin (Cyanocobalamin 1,000 Mcg Tablet) 1,000 mcg PO QAM [facility] Cyanocobalamin (Cyanocobalamin Inj 1,000 Mcg/Ml Vial) 1,000 mcg IM WEEKLY [facility] Cyclobenzaprine HCl (Cyclobenzaprine Hcl 10 Mg Tablet) 10 mg BY MOUTH TID PRN PRN Reason: Muscle Spasm Dextrose (Dextrose 50% 25 Gm/50 Ml Syringe) 12.5 gm IV PUSH PRN PRN; Protocol PRN Reason: Hypoglycemia Gabapentin (Gabapentin 300 Mg Capsule) 300 mg PO QAM [facility] Last Admin: 03/16/23 08:46 Dose: 300 mg Gabapentin (Gabapentin 300 Mg Capsule) 900 mg PO HS [facility] Last Admin: 03/15/23 22:39 Dose: 900 mg Glimepiride (Glimepiride 2 Mg Tablet) 2 mg PO QAM [facility] Last Admin: 03/16/23 08:50 Dose: Not Given Glucagon (Glucagon For Inj 1 Mg Vial) 1 mg IM PRN PRN; Protocol PRN Reason: Hypoglycemia Glucose (Glucose Oral Gel 15 Gm Of Glucse In 37.5 Gm Tube) 15 gm PO PRN PRN; Protocol PRN Reason: Hypoglycemia Hydromorphone HCl (Hydromorphone Hcl (*Crx) 4 Mg Tablet) 4 mg PO QHS [facility] Hydromorphone HCl (Hydromorphone Hcl (
[2023-03-16] MEDS: NITROFURANTOIN MONOHYD MACROCR 100 MG CAP PO (20:44)
[2023-03-16] MEDS: CYANOCOBALAMIN INJ 1,000 MCG/ML VIAL 1000 MCG IM (20:44)
[2023-03-16] MEDS: GABAPENTIN 300 MG CAPSULE 900 MG PO (20:44)
[2023-03-16 20:45] LABS: Glucose Point of Care 157 mg/dl (65-105)
[2023-03-16] MEDS: HYDROmorphone HCL (*CRX) 4 MG TABLET PO (20:45)
--- NOTE | 2023-03-16 23:01 | PC.NURSE ---
Report called to [facility], Pt going to room 1022. Report given to Tyesha.
[2023-03-17] MEDS: SODIUM CHLORIDE 0.9% IV 1,000 ML 75 ML IV CONT (03:00)
[2023-03-17] MEDS: METOCLOPRAMIDE HCL 5 MG TABLET PO (05:38)
[2023-03-17] MEDS: HYDROmorphone HCL (*CRX) 4 MG TABLET 8 MG PO (05:38)
[2023-03-17 05:57] VITALS: BP 144/71; PULSE 90; RESP 14; TEMP 36.4; O2SAT 96
[2023-03-17 06:21] LABS: Basophils Absolute Auto 0.1 K/mm3 (0.0-0.1); Basophils Percent Auto 0.7 % (0.2-1.2); Eosinophils Absolute Auto 0.2 K/mm3 (0-0.3); Eosinophils Percent Auto 2.4 % (0-4.4); Hematocrit 33.4 % (37.0-47.0); Hemoglobin 10.5 g/dL (12.0-15.0); Immature Granulocyte Absolute 0.06 K/mm3 (0.00-0.031); Immature Granulocyte Percent A 0.7 % (0-0.5); Lymphocytes Absolute Auto 4.28 K/mm3 (0.9-3.2); Lymphocytes Percent Auto 47.3 % (18.3-44.2); Mean Corpuscular HGB Conc 31.4 g/dl (32-36); Mean Corpuscular Hemoglobin 29.7 pg (26-34); Mean Corpuscular Volume 94.6 fl (80-100); Mean Platelet Volume 9.2 fl (7.4-10.4); Monocytes Absolute Auto 0.8 K/mm3 (0.1-0.6); Monocytes Percent Auto 9.2 % (2.6-8.5); Neutrophils Absolute Auto 3.6 K/mm3 (1.3-6.7); Neutrophils Percent Auto 39.7 % (45.5-73.1); Platelet Count Result 337 k/mm3 (150-375); Red Blood Count 3.53 M/mm3 (4.2-5.4); Red Cell Distribution Width 17.4 % (11.5-14.5); White Blood Count 9.1 K/mm3 (4.5-10.0)
[2023-03-17 06:30] LABS: Alanine Aminotransferase 55 U/L (6-35); Albumin Level 3.1 g/dL (3.5-5.1); Alkaline Phosphatase 61 U/L (38-126); Anion Gap 2 mmol/L (8-16); Aspartate Amino Transferase 289 U/L (14-36); Bilirubin,Total 0.6 mg/dL (0.2-1.3); Blood Urea Nitrogen 9 mg/dL (7-17); Calcium 8.5 mg/dL (8.4-10.2); Carbon Dioxide 31 mmol/L (22-30); Chloride 104 mmol/L (98-107); Creatine Kinase 1051 U/L (30-135); Estimated CRCL calculation 129 ml/min; Estimated Glomerular Filt Rate > 60; Glucose 85 mg/dL (65-110); Potassium 4.3 mmol/L (3.4-5.0); Sodium 137 mmol/L (137-145)
[2023-03-17] MEDS: ALBUTEROL SULFATE (*SP) AEROSOL 1 PUFF INHALATION (06:56)
[2023-03-17 07:05] VITALS: PULSE 84; RESP 18; O2SAT 95
[2023-03-17 07:50] LABS: Glucose Point of Care 92 mg/dl (65-105)
[2023-03-17] MEDS: NICOTINE (*PBKC) 21 MG PATCH 1 PATCH TRANSDERM (08:37)
[2023-03-17] MEDS: GLIMEPIRIDE 2 MG TABLET PO (08:38)
[2023-03-17] MEDS: POTASSIUM CHLORIDE 10 MEQ ER TABLET PO (08:38)
[2023-03-17] MEDS: CITALOPRAM HYDROBROMIDE 20 MG TABLET 40 MG PO (08:38)
[2023-03-17] MEDS: MULTIVITAMINS THERAPEUTIC TAB (*BKC) 1 TABLET PO (08:38)
[2023-03-17] MEDS: CHOLECALCIFEROL 1,000 UNITS TABLET 5000 UNITS PO (08:38)
[2023-03-17] MEDS: CYANOCOBALAMIN 1,000 MCG TABLET 1000 MCG PO (08:38)
[2023-03-17] MEDS: CALCIUM CARBONATE (TUMS) 500 MG (200 MG ELEMENTAL) 400 MG BY MOUTH (08:39)
[2023-03-17] MEDS: PIOGLITAZONE HCL 45 MG TABLET PO (08:39)
[2023-03-17] MEDS: GABAPENTIN 300 MG CAPSULE PO (08:39)
[2023-03-17] MEDS: NITROFURANTOIN MONOHYD MACROCR 100 MG CAP PO (08:39)
--- NOTE | 2023-03-17 09:20 | PCPTNOTE ---
Patient's nurse reports she is transferring to [facility] within in the hour.
--- NOTE | 2023-03-17 10:06 | PM.TDS ---
Transfer Discharge Sum: Prov Provider Date of admission: 03/15/23 16:54 Primary care physician: Darcy Mckeon MD Admitting clinician: Gibran Cody MD Consults: 03/15/23 16:55 Consult to Physician Routine Comment: Consulting Provider: Chula Nunez Reason for consultation: Bilateral lower extremity weakness Has provider been notified: Yes 03/16/23 Consult to Physician Routine Comment: Consulting Provider: Abigail Lord Reason for consultation: Bilateral leg weakness Has provider been notified: Yes Attending physician on discharge: Rigoberto Rawls Discharging clinician: Rigoberto Rawls Anticipated date of transfer: 03/17/23 Receiving physician/facility: [facility], Dr. Martinez accepted transfer on 03/16/23 at 1900 DS: Admitting Diagnosis Discharge Date 03/17/23 Admitting Diagnosis Bilateral leg weakness Ncglrwc-Ubzlm-Lykef disease Type 2 DM with peripheral neuropathy Chronic Pain DS: Discharge Diagnosis Discharge Diagnosis (1) Bilateral leg weakness: Code(s): R29.898 - Other symptoms and signs involving the musculoskeletal system Status: Acute Assessment and Plan: Acute on chronic with significant change and worsening of symptoms over the past 1 and half to 2 weeks. Begins at the level of mid abdomen and progresses through her hips bilaterally worse on right (2) Type 2 diabetes mellitus with peripheral neuropathy: Code(s): E11.42 - Type 2 diabetes mellitus with diabetic polyneuropathy Status: Acute Assessment and Plan: Hemoglobin A1c 5.7 on this visit. New diagnosis of gastroparesis indicated by outpatient gastric emptying study being treated with metoclopramide. Continued home diabetes management with low-dose sliding scale insulin (3) Elevated CK: Code(s): R74.8 - Abnormal levels of other serum enzymes Status: Acute Assessment and Plan: CK levels gradually rising despite IV fluid administration and significant oral intake. Urinalysis shows no myoglobin/occult blood and serum creatinine is normal. Possible muscle wasting. Patient has been on long-term atorvastatin which has been held/discontinued (4) Transaminitis: Code(s): R74.01 - Elevation of levels of liver transaminase levels Status: Acute Assessment and Plan: Acute elevations of ALT and AST have stabilized and are down trending, possibly related to elevated CK level which is possibly related to atorvastatin which has been discontinued. (5) B12 deficiency: Code(s): E53.8 - Deficiency of other specified B group vitamins Status: Acute Assessment and Plan: B12 level 169. Patient received IM B12 on 03/16/2023 and ordered daily oral replacement and weekly IM injections. Plan Plan to transfer to [facility] so patient can undergo MRI with without contrast of thoracic and lumbar spine as recommended by neurology consult Dr. Lord. Unable to obtain MRI at this facility due to implanted nerve stimulator. Arrangements made for patient to be accepted to the hospitalist service at [facility] and patient has been awaiting EMS transport since 1900 on 03/16/2023. Transfer Discharge Sum: Med Medications Active and Home Medications: Home Medications calcium carbonate 400 mg calcium (1,000 mg) chewable tablet (Antacid Ultra Strength) 400 mg PO DAILY 03/08/21 [History Confirmed 03/15/23] cholecalciferol (vitamin D3) 125 mcg (5,000 unit) capsule 125 mcg PO DAILY 03/08/21 [History Confirmed 03/15/23] multivitamin 1 tablet PO DAILY 03/08/21 [History Confirmed 03/15/23] metformin 500 mg tablet,extended release 24 hr See Rx Instructions .Route .COMPLEX #360 tabs 05/05/22 [Rx Confirmed 03/15/23] citalopram 40 mg tablet 40 mg PO DAILY #90 tabs 08/08/22 [Rx Confirmed 03/15/23] glimepiride 2 mg tablet 2 mg PO QAM #90 tabs 08/22/22 [Rx Confirmed 03/15/23] pioglitazone 45 mg tablet 45 mg PO DAILY #90 tabs 09/22/22 [Rx Confirmed 03/15
[2023-03-18 08:05] LABS: Rapid Plasma Reagin Non-Reactive (NonReactive)
== END 2023-03-17 10:26 ==
LOC: ANHED 14:03 → ANH3MED 17:36
PROVIDERS: Physician Assistant; Admitting Provider Family Medicine; Emergency Provider Preventive Medicine Aerospace Medicine; PCP Family Medicine; Visit Provider Nurse Practitioner
DX: R29.898 Other symptoms and signs involving the musculoskeletal system (principal); M54.9 Dorsalgia, unspecified; G60.0 Hereditary motor and sensory neuropathy; R29.6 Repeated falls; R20.0 Anesthesia of skin; F32.A Depression, unspecified; G62.89 Other specified polyneuropathies; K21.9 Gastro-esophageal reflux disease without esophagitis; K30 Functional dyspepsia; E78.5 Hyperlipidemia, unspecified; R74.8 Abnormal levels of other serum enzymes; I10 Essential (primary) hypertension; R79.89 Other specified abnormal findings of blood chemistry; E11.42 Type 2 diabetes mellitus with diabetic polyneuropathy; E11.43 Type 2 diabetes mellitus with diabetic autonomic (poly)neuropathy; R74.01 Elevation of levels of liver transaminase levels; B96.20 Unspecified Escherichia coli [E. coli] as the cause of diseases classified elsewhere; E53.8 Deficiency of other specified B group vitamins; E66.9 Obesity, unspecified; Z68.30 Body mass index [BMI] 30.0-30.9, adult; K31.84 Gastroparesis; M48.07 Spinal stenosis, lumbosacral region; F11.90 Opioid use, unspecified, uncomplicated; Z87.891 Personal history of nicotine dependence; Z79.84 Long term (current) use of oral hypoglycemic drugs; Z79.51 Long term (current) use of inhaled steroids; Z79.85 Long-term (current) use of injectable non-insulin antidiabetic drugs; Z79.899 Other long term (current) drug therapy
CPT/HCPCS: 36415; 72128; 72131; 78264; 80048; 80053; 80076; 81001; 82150; 82550; 82607; 82746; 82948; 83036; 83690; 84443; 85025; 85652; 86140; 86308; 86592; 87077; 87086; 87186; 94640; 96372; 99285; A9270; A9541; G0378; J3420; J7030

== ENCOUNTER 2023-04-04 02:50 | Day surgery (SDC) | payer MEDICARE, SELFPAY ==
[2023-03-25 09:49] VITALS: BMI 39.9
[2023-04-04 09:33] VITALS: BP 121/80; PULSE 85; RESP 18; TEMP 36.2; O2SAT 99
--- NOTE | 2023-04-04 10:11 | PM.HPGS ---
History of Present Illness History of Present Illness Consent: Risks, benefits, and alternatives have been discussed and questions answered. Patient agrees to proceed with procedure. Chief complaint: vomiting, GERD Narrative: Julia Adames is a 58 year old female With a history of diabetes and Charcot Romi tooth syndrome. Patient has occasional nausea vomiting. This is worsened on the last month. Patient takes narcotic pain medications for chronic pain. She uses a wheelchair to ambulate. She does take nonsteroidal anti-inflammatory agents but begun to the lessened this dose. Recently seen in the GI office a gastric emptying scan r revealed delayed gastric emptying. Patient presents today for EGD to exclude organic disease. Review of Systems Review of Systems: Review of systems noncontributory. REPLACED BY [facility] Past Medical History Medical History (Reviewed 03/29/23 @ 09:38 by Samantha Mclaughlin [facility]) Eovalxx-Xedyc-Fwume disease Chronic pain Chronic, continuous use of opioids Depression Frequent falls Gastroesophageal reflux disease History of tobacco abuse Hyperlipidemia Hypertension Peripheral neuropathy Type 2 diabetes mellitus Surgical History Surgical History (Reviewed 03/29/23 @ 09:38 by Samantha Mclaughlin [facility]) History of arthroplasty of left knee (02/2016) History of arthroplasty of right knee (12/2015) History of bilateral cataract extraction (2020) History of section (07/2003) History of total hysterectomy (2009) Family History Family History (Reviewed 03/29/23 @ 09:38 by Samantha Mclaughlin [facility]) Mother Family history of hypercholesterolemia Skin cancer Sibling Family history of cardiovascular disease Father Malignant neoplasm of prostate Social History Social History (Reviewed 03/29/23 @ 09:38 by Samantha Mclaughlin [facility]) Social History: Surrogate medical decision maker: La Nena Adames, daughter. Code status: Full code. Smoking packs per day: 1 Smoking cigarettes per day: 20.0 Years smoked: 26 Smoking pack-years: 26.00 Smoking status: Current every day smoker Tobacco type: cigarettes and e-cigarettes/vaping Second hand tobacco smoke exposure: Yes Additional smoking assessment comments: Uses E-cigs Alcohol intake: never Substance use: never Substance use type: does not use Lack of Transportation: No Lack of Food: Never True Current Housing: I Have Housing Concerned About Future Housing: No Difficulty Paying Gas/Electric Bills: YES Difficulty Paying for Meds: YES Currently Unemployed: YES Education: High School Diploma/GED Difficulty w/ Childcare or Family Care: No Living arrangements: with family Additional living arrangements comments: . Currently living with sister and moqmwuc-af-lyr following the of her . Additional occupation/education comments: Disabled. Spiritual care concerns: No Agree to blood products: Yes Meds Home Medications and Allergies Home Medications Medication Instructions Recorded Confirmed Type cholecalciferol (vitamin D3) 125 125 mcg PO DAILY 03/08/21 03/29/23 History mcg (5,000 unit) capsule multivitamin 1 tablet PO DAILY 03/08/21 03/29/23 History metformin 500 mg tablet,extended See Rx Instructions .Route 05/05/22 03/29/23 Rx release 24 hr .COMPLEX #360 tabs citalopram 40 mg tablet 40 mg PO DAILY #90 tabs 08/08/22 03/29/23 Rx pioglitazone 45 mg tablet 45 mg PO DAILY #90 tabs 09/22/22 03/29/23 Rx potassium chloride 10 mEq 10 meq PO BID #180 tabs 12/24/22 03/29/23 Rx tablet,extended release gabapentin 300 mg capsule See Rx Instructions PO .COMPLEX 01/06/23 03/29/23 Rx #120 caps naloxone 4 mg/actuation nasal spray 1 spray intranasal Q3M PRN opioid 02/21/23 03/29/23 Rx overdose #2 ea semaglutide 1 mg/dose (4 mg/3 mL) 1 mg (0.75 mL) subcut WEEKLY #3 mL 03/03/23 03/29/23 Rx subcutaneous pen injector cyclobenzaprine 10 mg tablet See Rx Instructions .R
[2023-04-04] MEDS: LACTATED RINGERS 1,000 ML 150 ML IV CONT (10:16)
[2023-04-04 10:19] LABS: Glucose Point of Care 85 mg/dl (65-105)
[2023-04-04 10:36] VITALS: BP 142/87; PULSE 93; RESP 21; O2SAT 99
[2023-04-04 10:46] VITALS: BP 148/80; PULSE 92; RESP 21; O2SAT 99
[2023-04-04 10:56] VITALS: BP 150/83; PULSE 89; RESP 13; O2SAT 99
== END 2023-04-04 11:11 | disposition home or self-care (01) ==
PROVIDERS: PCP Family Medicine; Visit Provider Internal Medicine Gastroenterology
PROC: 0DJ08ZZ Inspection of Upper Intestinal Tract, Via Natural or Artificial Opening Endoscopic (ICD-10-PCS; CPT 43235; principal; 2023-04-04 10:30)
DX: K25.9 Gastric ulcer, unspecified as acute or chronic, without hemorrhage or perforation (principal); K44.9 Diaphragmatic hernia without obstruction or gangrene; K21.00 Gastro-esophageal reflux disease with esophagitis, without bleeding; E11.43 Type 2 diabetes mellitus with diabetic autonomic (poly)neuropathy; K31.84 Gastroparesis; G60.0 Hereditary motor and sensory neuropathy; E11.42 Type 2 diabetes mellitus with diabetic polyneuropathy; R29.898 Other symptoms and signs involving the musculoskeletal system; I10 Essential (primary) hypertension; E78.5 Hyperlipidemia, unspecified; G89.29 Other chronic pain; F32.A Depression, unspecified; Z79.891 Long term (current) use of opiate analgesic; F17.210 Nicotine dependence, cigarettes, uncomplicated; F17.290 Nicotine dependence, other tobacco product, uncomplicated; Z79.84 Long term (current) use of oral hypoglycemic drugs; Z79.899 Other long term (current) drug therapy; Z79.51 Long term (current) use of inhaled steroids
CPT/HCPCS: 43239; 82948; 88305; J2704; J7120

== ENCOUNTER 2023-05-08 09:46 | Outpatient (CLI) | payer MEDICARE, SELFPAY ==
--- NOTE | ~2023-05-08 | MM_ITS ---
EXAMINATION: MM screening aida BI w marian HISTORY: Screening TECHNIQUE: Craniocaudal and mediolateral oblique 3-D tomosynthesis images were obtained and synthetic 2-D images were generated. CAD analysis was submitted and interpreted. COMPARISON: 10/13/2020 BREAST PARENCHYMAL COMPOSITION: There are scattered areas of fibroglandular density. FINDINGS: There is no evidence of suspicious mass, calcification, or architectural distortion to sugg est malignancy in either breast. There has been no suspicious interval change. IMPRESSION: 1. No mammographic evidence of malignancy. 2. Recommend routine screening mammography in one year. BI-RADS Category 1: Negative Reviewed, dictated and finalized at location A.
== END 2023-05-08 09:47 | disposition home or self-care (01) ==
LOC: ANHIMG 09:48
PROVIDERS: PCP Family Medicine; Visit Provider Physician Assistant
DX: Z12.31 Encounter for screening mammogram for malignant neoplasm of breast (principal)
CPT/HCPCS: 77063; 77067

== ENCOUNTER 2023-08-09 00:11 | Day surgery (SDC) | payer MEDICARE, SELFPAY ==
[2023-07-30 11:11] VITALS: BMI 38.9
--- NOTE | 2023-08-07 09:49 | SUR.PREOP ---
Patient called regarding upcoming procedure. Message left of patient's voiceamil regarding preop instructions, appointment times, and procedure prep.
[2023-08-09 08:16] VITALS: BP 115/81; PULSE 76; RESP 18; TEMP 36.3; O2SAT 99; BMI 40.4
[2023-08-09] MEDS: LACTATED RINGERS 1,000 ML 150 ML IV CONT (08:32)
--- NOTE | 2023-08-09 08:34 | PM.HPGS ---
History of Present Illness History of Present Illness Consent: Risks, benefits, and alternatives have been discussed and questions answered. Patient agrees to proceed with procedure. Chief complaint: Gastric ulcer,GERD, Gastroparesis Narrative: Julia Adames is a 58 year old female Presents for follow-up EGD. Patient found to have a gastric ulcer in March. She presents today to document healing. She denies any abdominal pain. Previous nausea has improved. Patient has diagnosis of gastroparesis bleed to be on the basis of diabetes. 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 This may also contribute to her gastroparesis. Currently taking Reglan on a regular basis. Review of Systems Review of Systems: Review of systems noncontributory. [facility] Past Medical History Medical History Htffphk-Sjimq-Qyqei disease Chronic pain Chronic, continuous use of opioids Depression Frequent falls Gastroesophageal reflux disease History of tobacco abuse Hyperlipidemia Hypertension Peripheral neuropathy Type 2 diabetes mellitus Surgical History Surgical History History of arthroplasty of left knee (02/2016) History of arthroplasty of right knee (12/2015) History of bilateral cataract extraction (2020) History of section (07/2003) History of total hysterectomy (2009) Family History Family History Mother Family history of hypercholesterolemia Skin cancer Sibling Family history of cardiovascular disease Father Malignant neoplasm of prostate Social History Social History Social History: Surrogate medical decision maker: La Nena Adames, daughter. Code status: Full code. Smoking packs per day: 1 Smoking cigarettes per day: 20.0 Years smoked: 26 Smoking pack-years: 26.00 Smoking status: Current every day smoker Tobacco type: cigarettes and e-cigarettes/vaping Second hand tobacco smoke exposure: Yes Additional smoking assessment comments: Uses E-cigs Alcohol intake: never Substance use: never Substance use type: does not use Lack of Transportation: No Lack of Food: Never True Current Housing: I Have Housing Concerned About Future Housing: No Difficulty Paying Gas/Electric Bills: YES Difficulty Paying for Meds: YES Currently Unemployed: YES Education: High School Diploma/GED Difficulty w/ Childcare or Family Care: No Living arrangements: with family Additional living arrangements comments: . Currently living with sister and itfzxju-ip-zbh following the of her . Additional occupation/education comments: Disabled. Spiritual care concerns: No Agree to blood products: Yes Meds Home Medications and Allergies Home Medications Medication Instructions Recorded Confirmed Type cholecalciferol (vitamin D3) 125 125 mcg PO DAILY 03/08/21 08/09/23 History mcg (5,000 unit) capsule multivitamin 1 tablet PO DAILY 03/08/21 08/09/23 History mecobalamin (vitamin B12) 5,000 5,000 mcg PO DAILY 04/01/23 08/09/23 History mcg chewable tablet albuterol sulfate 90 mcg/actuation 1 inh inhalation Q4H PRN Wheezing 04/02/23 08/09/23 Rx aerosol inhaler (Ventolin HFA) #18 grams pantoprazole 40 mg tablet,delayed 40 mg PO .BID #60 tabs 04/04/23 08/09/23 Rx release gabapentin 300 mg capsule See Rx Instructions PO .COMPLEX 04/08/23 08/09/23 Rx #120 caps metformin 500 mg tablet,extended See Rx Instructions .Route 04/10/23 08/09/23 Rx release 24 hr .COMPLEX #360 tabs cyclobenzaprine 10 mg tablet See Rx Instructions .Route 04/28/23 08/09/23 Rx .COMPLEX PRN Muscle Spasms #90 tabs semaglutide 1 mg/dose (4 mg/3 mL) 1 mg (0.75 mL) subcut WEEKLY #3 mL 05/10/23 08/09/23 Rx subcutaneous pen
[2023-08-09 08:38] LABS: Glucose Point of Care 190 mg/dl (65-105)
--- NOTE | 2023-08-09 08:48 | WPDANESEPPF ---
Anes - Initial Pre Proc Eval Procedure: Operation Date: 08/09/23 09:00 Proposed Procedures p Esophagogastroduodenoscopy - Dung Arana MD Date/Time: 08/09/23 08:48 Surgeon: Dung Arana MD Pre Op Diagnosis: Gastric ulcer,GERD, Gastroparesis Patient Data Age: 58 Gender: F Height: 1.79 m Weight: 129.5 kg Last Vital Signs Temp 97.4 F L 08/09/23 08:16 Pulse 76 08/09/23 08:16 Resp 18 08/09/23 08:16 BP 115/81 08/09/23 08:16 Pulse Ox 99 08/09/23 08:16 O2 Del Method Room Air 08/09/23 08:16 Allergies Allergy/AdvReac Type Severity Reaction Status Date / Time Penicillins Allergy Severe Swelling Verified 08/09/23 08:14 Home Medications Medication Instructions Recorded Confirmed Type cholecalciferol (vitamin D3) 125 125 mcg PO DAILY 03/08/21 08/09/23 History mcg (5,000 unit) capsule multivitamin 1 tablet PO DAILY 03/08/21 08/09/23 History mecobalamin (vitamin B12) 5,000 5,000 mcg PO DAILY 04/01/23 08/09/23 History mcg chewable tablet albuterol sulfate 90 mcg/actuation 1 inh inhalation Q4H PRN Wheezing 04/02/23 08/09/23 Rx aerosol inhaler (Ventolin HFA) #18 grams pantoprazole 40 mg tablet,delayed 40 mg PO .BID #60 tabs 04/04/23 08/09/23 Rx release gabapentin 300 mg capsule See Rx Instructions PO .COMPLEX 04/08/23 08/09/23 Rx #120 caps metformin 500 mg tablet,extended See Rx Instructions .Route 04/10/23 08/09/23 Rx release 24 hr .COMPLEX #360 tabs cyclobenzaprine 10 mg tablet See Rx Instructions .Route 04/28/23 08/09/23 Rx .COMPLEX PRN Muscle Spasms #90 tabs semaglutide 1 mg/dose (4 mg/3 mL) 1 mg (0.75 mL) subcut WEEKLY #3 mL 05/10/23 08/09/23 Rx subcutaneous pen injector citalopram 40 mg tablet See Rx Instructions .Route 06/06/23 08/09/23 Rx .COMPLEX #90 tabs metoclopramide HCl 5 mg tablet 5 mg PO ACHS 30 days #360 tabs 06/12/23 08/09/23 Rx (Reglan) potassium chloride 10 mEq 10 meq PO BID #180 tabs 06/23/23 08/09/23 Rx tablet,extended release pioglitazone 45 mg tablet 45 mg PO DAILY #90 tabs 07/17/23 08/09/23 Rx hydromorphone 8 mg tablet 8 mg PO BID #60 tabs 07/26/23 08/09/23 Rx hydromorphone 4 mg tablet 4 mg PO QHS #30 tabs 08/08/23 08/09/23 Rx Laboratory Tests 08/09/23 08:35 POC Capillary Glucose 190 H mg/dl (65-105) Patient hx anesthesia problems: none Family hx anesthesia problems: none Results Review: All pre-operative results and documents have been reviewed as part of the pre-operative evaluation. [facility] Past Medical History Medical History Ywulegz-Ltgcw-Rsgqe disease Chronic pain Chronic, continuous use of opioids Depression Frequent falls Gastroesophageal reflux disease History of tobacco abuse Hyperlipidemia Hypertension Peripheral neuropathy Type 2 diabetes mellitus Surgical History Surgical History History of arthroplasty of left knee (02/2016) History of arthroplasty of right knee (12/2015) History of bilateral cataract extraction (2020) History of section (07/2003) History of total hysterectomy (2009) Family History Family History Mother Family history of hypercholesterolemia Skin cancer Sibling Family history of cardiovascular disease Father Malignant neoplasm of prostate Social History Social History Social History: Surrogate medical decision maker: La Nena Adames, daughter. Code status: Full code. Smoking packs per day: 1 Smoking cigarettes per day: 20.0 Years smoked: 26 Smoking pack-years: 26.00 Smoking status: Current every day smoker Tobacco type: cigarettes and e-cigarettes/vaping Second hand tobacco smoke exposure: Yes Additional smoking assessment comments: Uses E-cigs Alcohol intake: never Substance use: never [place]
[2023-08-09 09:24] VITALS: BP 91/52; PULSE 79; RESP 19; O2SAT 99
[2023-08-09 09:34] VITALS: BP 114/51; PULSE 79; RESP 19; O2SAT 99
[2023-08-09 09:43] VITALS: BP 106/59; PULSE 75; RESP 33; O2SAT 91
== END 2023-08-09 09:49 | disposition home or self-care (01) ==
PROVIDERS: PCP Family Medicine; Visit Provider Internal Medicine Gastroenterology
PROC: 0DJ08ZZ Inspection of Upper Intestinal Tract, Via Natural or Artificial Opening Endoscopic (ICD-10-PCS; CPT 43235; principal; 2023-08-09 09:00)
DX: Z09 Encounter for follow-up examination after completed treatment for conditions other than malignant neoplasm (principal); K22.70 Barrett's esophagus without dysplasia; K44.9 Diaphragmatic hernia without obstruction or gangrene; K21.00 Gastro-esophageal reflux disease with esophagitis, without bleeding; Z87.11 Personal history of peptic ulcer disease; E11.43 Type 2 diabetes mellitus with diabetic autonomic (poly)neuropathy; K31.84 Gastroparesis; G60.0 Hereditary motor and sensory neuropathy; E11.42 Type 2 diabetes mellitus with diabetic polyneuropathy; I10 Essential (primary) hypertension; E78.5 Hyperlipidemia, unspecified; F32.A Depression, unspecified; G89.29 Other chronic pain; F17.210 Nicotine dependence, cigarettes, uncomplicated; F17.290 Nicotine dependence, other tobacco product, uncomplicated; Z79.891 Long term (current) use of opiate analgesic; Z79.51 Long term (current) use of inhaled steroids; Z79.84 Long term (current) use of oral hypoglycemic drugs; Z79.85 Long-term (current) use of injectable non-insulin antidiabetic drugs
CPT/HCPCS: 43239; 82948; 88305; J2704; J7120

== ENCOUNTER 2024-11-13 12:10 | Emergency (ER) | payer MEDICARE, SELFPAY ==
--- NOTE | ~2024-11-13 | CT_ITS ---
EXAMINATION: CTA chest PE protocol DATE: 11/13/2024 20:39 INDICATION: Hemoptysis. TECHNIQUE: Computed tomography angiography (CTA) of the chest was performed with 100 mL Omnipaque-350 intravenous contrast timed to evaluate the pulmonary arteries. Coronal maximum intensity projection 3D-reconstructions were created by the technologist. Automated exposure control and iterative reconst ruction technique were employed. The dose-length product was 853.49 mGy-cm. COMPARISON: None. FINDINGS: There are centrilobular nodules and groundglass opacities in the upper lobes and lower lobe s, worst in the lower lobes, consistent with pneumonia. No pleural effusion. The heart size is normal . There are coronary artery calcifications. No pericardial effusion. There is no pulmonary embolus. T here is a moderate-sized sliding hiatal hernia. There is cortical thinning of the kidneys. There is d iffuse hepatic steatosis. There are cysts in the liver measuring up to 2.0 cm. Epidural electrodes ar e noted. There is mild thoracic spondylosis. IMPRESSION: 1. No pulmonary embolus. 2. Bilateral pneumonia. 3. Moderate-sized sliding hiatal hernia. Reviewed, dictated and finalized at location A. [facility] SPECIALIST
--- OUTSIDE RECORDS SUMMARY | 2024-11-13 12:12 | XMS_ITS | Clinical Summary ---
Author Organization [facility] Address [facility] [facility] [place] [address] Care Team Providers Care Measurement And Verification Engineer Name Role Phone Torrey Giron MD Primary Care Provider [phone] Lennox Shell MD Unavailable [phone] Source Comments [facility],non-owned Affiliates and Associated Physician Practices is amultiple site organization consisting of ambulatory clinics and hospital sitesin [place], [place], [place] and [place]. This disclosure is being madepursuant to the Care Everywhere program and may not contain all informatio navailable regarding this patient. Last updated 18.[facility] Allergies Active Allergy Reactions Criticality Noted Date Comments Celecoxib 01/11/2016 Pt was told to take half-way anti inflammatories/pt agrees to pre op dose Penicillins 03/08/2015 Medications * Be aware that medications may not be up to date on this document. Alwaysverify current medications with the patient. Medication Sig Dispensed Refills Start Date End Date Status cyclobenzaprine (FLEXERIL) 10 MG tablet Take 10 mg by mouth 3 times daily as needed for Muscle Spasms Active atorvastatin (LIPITOR) 40 MG tablet Take 40 mg by mouth at bedtime Active glimepiride (AMARYL) 4 MG tablet Take 8 mg by mouth daily with breakfast Active citalopram (CELEXA) 40 MG tablet Take by mouth once daily Active gabapentin (NEURONTIN) 300 MG capsule Take 600 mg by mouth at bedtime Active metFORMIN ER 24hr (GLUCOPHAGE XR) 500 MG tablet 2,000 mg daily with dinner 2 10/03/2015 Active pioglitazone (ACTOS) 45 MG tablet 45 mg once daily 3 10/03/2015 Active iron polysaccharides (NIFEREX 150) 150 MG capsule Take 1 Cap by mouth once daily 30 Cap 1 01/14/2016 Active INVOKANA 100 MG tablet Take 100 mg by mouth once daily 01/07/2016 Active oxyCODONE-acetaminophe n (PERCOCET) 10-325 MG tablet Take 0.5-1 Tabs by mouth every 6 hours as needed 90 Tab 0 03/29/2016 Active Additional Information Patient not taking.Reported on 06/19/2016 metoprolol tartrate (LOPRESSOR) 25 MG tabletIndications:Hist ory of left knee replacement Take 25 mg by mouth once daily 1 01/14/2016 Active Active Problems Problem Noted Date Diagnosed Date History of left knee replacement 04/17/2016 Primary osteoarthritis of left knee 12/05/2015 Social History Tobacco Use Types Packs/Day Years Used Date Smoking Tobacco: Some Days Tobacco Cessation:Ready to Q uit: No; Counseling Given: Yes Comments:e-cigs and 1-2 cigs per day at times Alcohol Use Standard Drinks/Week Comments No 0 (1 standard drink = 0.6 oz pur e alcohol) Sex and Gender Information Value Date Recorded Sex Assigned at Not on file Gender Identity Not on file Sexual Orientation Not on file Last Filed Vital Signs Vital Sign Reading Time Taken Comments Blood Pressure 120/69 03/30/2016 12:38 PM CDT Pulse 112 03/30/2016 12:38 PM CDT Temperature 36.7 C (98.1 F) 03/30/2016 9:01 AM CDT Respiratory Rate 16 03/30/2016 9:01 AM CDT Oxygen Saturation 100% 03/30/2016 12: 38 PM CDT Inhaled Oxygen Concentration - - Weight 123.1 kg (271 lb 6.4 oz) 03/28/2016 5:52 AM CDT Height 182.9 cm (6' 0.01 ) 03/28/2016 5:52 AM CD T Body Mass Index 36.8 03/28/2016 5:52 AM CDT Plan of Treatment Health Maintenance Due Date Last Done Comments COLOGUARD (AGES 45-75) - COL ON CA SCREENING 1965 COLON MONITORING 1965 COLONOSCOPY - COLON CA SCREENING 1965 CT COLONOGRAPHY - COLON CA SCREENING 1965 Colorectal Cancer Screening 1965 FIT - COLON CA SCREENING 1965 FLEX SIG - COLON CA SCREENING 1965 MAMMOGRAM 1965 HIV SCREENING 01/02/1980 HEPATITIS C SCREENING 12/28/1982 DTAP/TDAP/TD VACCINES (1 - Tdap) 01/02/1984 HEPATITIS B VACCINE (1 of 3 - 19+ 3-dose series) 01/02/1984 PNEUMOCOCCAL VACCINE 50+ (1 of 2 - PCV) 01/02/1984 PNEUMOCOCCAL VACCINE (1 of 2 - PCV) 01/02/1984 ZOSTER VACCINE (1 of 2) 2015 COVID-19 VACCINE (1 - 2023-2 5 season) 2024 INFLUENZA VACCINE (#1) 2024 DEPRESSION SCREENING 09/23/2024 MEDICARE AWV CALENDAR YEAR 2024 HIB VACCINE Aged Out No longer eligi ble based on patient's age to complete this topic HPV VACCINE Aged Out No longer eligi ble based on patient's age to complete this topic MENINGOCOCCAL (Group B) VACCINE Aged Out No longer eligible based on patient's age to complete this topic MENINGOCOCCAL VACCINE Aged Out No marcos ayaz eligible based on patient's age to complete this topic Medical Devices Implanted Type Area Pathology Specialist Device Identifier Shelf Expiration Date Model / Serial / Lot Gurpreet Bone Paint Lick Hv Implanted:Qty: 1 on 01/11/2016 by Lennox Shell MD at [facility] Right: Knee [employer] 06/22/2017 [id number] / / [id number] Butn Pat Arcom Wire Polyeth Sm 31 X 8mm Implanted:Qty: 1 on 01/11/2016 by Lennox Shell MD at [facility] Right: Knee [employer] 11/09/2020 [id number] / / [id number] Ty Tibial I Beam Fix Bar 75mm Implanted:Qty: 1 on 01/11/2016 by Lennox Shell MD at [facility] Right: Knee [employer] 10/26/2025 [id number] / / [id number] Ins Kn Vangurd Fem Cocr R-Intlok 70mm Implanted:Qty: 1 on 01/11/2016 by Lennox Shell MD at [facility] Right: Knee [employer] 12/10/2025 [id number] / / [id number] Vangrd Ant Stblzd Brg 10mm X 75mm Implanted:Qty: 1 on 01/11/2016 by Lennox Shell MD at [facility] Right: Knee [employer] 05/13/2020 [id number] / / [id number] Vangrd Ant Stblzd Brg 10mm X 75mm Implanted:Qty: 1 on 03/28/2016 by Lennox Shell MD at [facility] Left: Knee [employer] 10/04/2020 [id number] / / [id number] Gurpreet Bone Paint Lick Hv Implanted:Qty: 1 on 03/28/2016 by Lennox Shell MD at [facility] Left: Knee [employer] 08/22/2017 [id number] / / [id number] Ty Tibial I Beam Fix Bar 75mm Implanted:Qty: 1 on 03/28/2016 by Lennox Shell MD at [facility] Left: Knee [employer] 02/10/2026 [id number] / / [id number] Kn Ins Vangurd Fem Cocr Intlok L 67.5mm Implanted:Qty: 1 on 03/28/2016 by Lennox Shell MD at [facility] Left: Knee [employer] 01/30/2026 [id number] / / [id number] Butn Pat Arcom Wire Polyeth Sm 31 X 8mm Implanted:Qty: 1 on 03/28/2016 by Lennox Shell MD at [facility] Left: Knee [employer] 01/23/2021 [id number] / / [id number] Advance Directives Documents on File Type Date Recorded Patient Rfid Manager Expl anation Adv Directive/Living Will/POA 01/16/2016 9:23 PM * Full Code (Latest Code Status on File) Date Activated Date Inactivated Comments 03/28/2016 10:21 AM 03/30/2016 5:20 PM * Full Code Date Activated Date Inactivated Comments 01/11/2016 1:30 PM 01/14/2016 1:30 PM Care Teams Measurement And Verification Engineer Relationship Specialty Start Date End Date Torrey Giron MD [address] [place], [place] [id number] PCP - General Family Medicine 02/08/15 [place] [address] [address] Orthopedic Surgery 03/08/15
--- OUTSIDE RECORDS SUMMARY | 2024-11-13 12:12 | XMS_ITS | Clinical Summary ---
Author Organization [facility] Address [address] [place] [address] Phone Care Team Providers Care Deicer Kit Assembler Name Role Phone Darcy Mckeon MD Primary Care Provider [phone] Allergies Active Allergy Reactions Criticality Noted Date Comments Penicillins Unknown 03/08/2023 Medications calcium carbonate-mag hydroxide (MYLANTA SUPREME) 400-135 mg/5 mL Suspension Take 1 mL by mouth. Active cholecalciferol , Vitamin D3, 125 mcg (5,000 unit) Capsule Take 5,000 Units by mouth daily. Active citalopram (CeleXA) 40 mg tablet Take 40 mg by mouth daily. Active cyclobenzaprine (FLEXERIL) 10 mg tablet Take 10 mg by mouth 3 times daily as needed for Spasm. Active gabapentin (NEURONTIN) 300 mg capsule Take 300 mg by mouth 3 times daily. Active glimepiride (AMARYL) 2 mg tablet Take 2 mg by mouth daily with breakfast. Active HYDROmorphone (DILAUDID) 4 mg tablet Take 4 mg by mouth every 3 hours as needed for Pain. Active HYDROmorphone (DILAUDID) 8 mg Tablet tablet Take 8 mg by mouth every 3 hours as needed for Pain. Active metFORMIN (GLUCOPHAGE) 500 mg tablet Take 500 mg by mouth 2 times daily with meals. Active pioglitazone (ACTOS) 45 mg tablet Take 45 mg by mouth daily with breakfast. Active potassium chloride (KLOR-CON) 10 mEq Extended Release tablet Take 10 mEq by mouth. Active multivitamin (DAILY-STEVE) tablet Take 1 Tablet by mouth daily. Active albuterol sulfate HFA 90 mcg/actuation aerosol inhaler Take 2 Puffs by inhalation every 6 hours as needed for Shortness of Breath. Active ezetimibe (ZETIA) 10 mg tablet 3 Active metoclopramide HCl (REGLAN) 5 mg tablet 3 Active naloxone (NARCAN) 4 mg/spray [place]tuck, Non-Aerosol PLEASE SEE ATTACHED FOR DETAILED DIRECTIONS 3 Active pantoprazole (PROTONIX) 40 mg Recon Soln 3 Active cyanocobalamin 1,000 mcg Tablet Take 1,000 mcg by mouth daily. Active SEMAGLUTIDE SUBCUT Inject 4 Units by subcutaneous injection every 7 days. DM, takes on fridays Active Active Problems Problem Noted Date Diagnosed Date Battery end of life of spinal cord stimulator Family History Medical History Relation Name Comments Other Brother tobacco use Blood Clots Father Cancer Father prostate Other Father tobacco use Blood Clots Maternal Grandfather High Cholesterol Maternal Grandfather Hypertension Maternal Grandfather Other Maternal Grandfather tobacco use Cancer Mother skin cancer High Cholesterol Mother Breast Cancer Other 1 aunt Diabetes Other 1 aunt Hypertension Other 1 aunt Other Other 1 aunt tobacco use Other Other 2 uncle tobacco use Diabetes Paternal Grandfather Other Sister tobacco use Relation Name Status Comments Brother Father Maternal Grandfather Mother Other 1 aunt Other 2 uncle Alive Paternal Grandfather Sister Social History Tobacco Use Types Packs/Day Years Used Date Smoking Tobacco: Former Cigarettes Tobacco Cessation:Counseling Given: Not Answered Alcohol Use Standard Drinks/Week Comments Never 0 (1 standard drink = 0.6 oz pur e alcohol) Feeling Safe Answer Date Recorded Are you in a relationship wi th someone who hurts you emotionally and/or physically? Unable to obtain 06/20/2023 Food Insecurity Answer Date Recorded Social/Environmental Concerns No concerns Transportation Needs Answer Date Record ed Social/Environmental Concerns No concerns Housing Stability Answer Date Recorded Social/Environmental Concerns No concerns Utility Needs Answer Date Recorded Social/Environmental Concerns No concerns Comments No Sex and Gender Information Value Date Recorded Sex Assigned at Not on file Legal Sex Female 9:07 AM CDT Gender Identity Not on file Sexual Orientation Not on file Last Filed Vital Signs Vital Sign Reading Time Taken Comments Blood Pressure 123/77 07/05/2023 1:48 PM CDT Pulse 76 07/05/2023 1:48 PM CDT Temperature 36.7 C (98.1 F) 07/05/2023 1:48 PM CDT Respiratory Rate 12 06/20/2023 9:21 AM CDT Oxygen Saturation 99% 06/20/2023 9:21 AM CDT Inhaled Oxygen Concentration - - Weight 128.8 kg (284 lb) 07/05/2023 1:48 PM CDT Height 177.8 cm (5' 10 ) 07/05/2023 1:48 PM CDT Body Mass Index 40.75 07/05/2023 1:48 PM CDT Plan of Treatment Health Maintenance Due Date Last Done Comments PNEUMOCOCCAL VACCINE 0-64 YEARS (1 of 2 - PCV) 971 DIABETES ANNUAL FOOT EXAM 1983 DIABETES ANNUAL RETINAL EXAM 1983 DIABETES MICROALBUMIN ANNUAL SCREEN 1983 LDL CHOLESTEROL ANNUAL 1983 DTAP/TDAP/TD VACCINES (1 - Tdap) 01/02/1984 HEPATITIS B VACCINES (1 of 3 - 19+ 3-dose series) 12/22 CERVICAL CANCER SCREENING 1995 BREAST CANCER SCREENING 2005 COLORECTAL SCREENING 2010 Colorectal Cancer Screening 2010 FIT-DNA Q 3 years 2010 FIT/FOBT Q 1 year 2010 Flex Sig/CT Colonography Q 5 years 2010 ZOSTER VACCINE (1 of 2) 2015 DIABETES HBA1C Q 6 MONTHS 11/13/2023 05/13/2023 INFLUENZA VACCINE (#1) 2024 Medical Devices Implanted Type Area Batch Blender Device Identifier Shelf Expiration Date Model / Serial / Lot Engine Assembly Supervisor Patient Intellis [id number] - [id number] Implanted:Qty: 1 on 05/30/2023 by Amira Covarrubias MD at [facility] Left: Back [employer]- NEUROLOGIC TECH 05/30/2033 [id number] / [id number] / Controller Intellis Implanted:Qty: 1 on 05/30/2023 by Amira Covarrubias MD at [facility] [employer] [id number] / [id number] / Description:ALL [employer] CO MPONENTS ON REQUISITION # [id number] Lead Surescan Vectris Mri [id number] - [id number] Implanted:Qty: 1 on 05/30/2023 by Amira Covarrubias MD at [facility] Lead Left: Back [employer]- NEUROLOGIC TECH 11/19/2026 [id number] / / [id number] Neurostimulator Intellis Adapterivestim Mri [id number] - [id number] Implanted:Qty: 1 on 05/30/2023 by Amira Covarrubias MD at [facility] Neuro Stimulator Right: Back [employer]- NEUROLOGIC TECH 04/05/2024 [id number] / [id number] / Neuro Absorbable Antibacterial Envelope Implanted:Qty: 1 on 05/30/2023 by Amira Covarrubias MD at [facility] N/A: Back [id number] / / [id number] Neuro Absorbable Antibacterial Envelope - Medium Implanted:Qty: 1 on 06/20/2023 by Amira Covarrubias MD at [facility] N/A: Back 03/09/2024 [id number] / / [id number] Description:Requisition # [id number]. Explanted Type Area Batch Blender Device Identifier Shelf Expiration Date Model / Serial / Lot Spinal Cord Stimulator Generator And Percutaneous Electrode. Explanted:Qty: 1 on 05/30/2023 by Amira Covarrubias MD at [facility] N/A: Back Procedures Procedure Name Priority Date/Time Associated Diagnosis Comments HEMOGLOBIN A1C Routine 05/13/2023 9:15 AM CDT from Last 3 Months or Most Recently Relevant to Health Maintenance Results * (ABNORMAL) HEMOGLOBIN A1C (05/13/2023 9:15 AM CDT) HEMOGLOBIN A1C 5.7(H) <5.7 % 05/13/2023 11:16 AM CDT [facility] EST. AVG GLUCOSE, A1C 117 mg/dL 05/13/2023 11:16 AM CDT [facility] Blood Venipuncture / Unknown 05/13/2023 9:15 AM CDT 05/13/2023 10:25 AM CDT Narrative [facility] [employer] [facility] - 05/13/2023 11:16 AM CDT HGB A1C INTERPRETATION NORMAL: <5.7% PRE-DIABETES: 5.7 - 6.4% DIABETES: 6.5% OR GREATER us Amira Covarrubias MD CHEMISTRY ORDERABLES Final Resu lt [facility] SERVICES [facility] CLIA# [id number] [address] [place] [address] from Last 3 Months or Most Recently Relevant to Health Maintenance Insurance [employer] [facility] MCR Advance Directives For more information, please contact: [phone] * Full Code (Latest Code Status on File) Date Activated Date Inactivated Comments 06/20/2023 5:40 AM 06/20/2023 11:59 AM * Full Code Date Activated Date Inactivated Comments 05/30/2023 9:48 AM 05/30/2023 2:24 PM * Full Code Date Activated Date Inactivated Comments 05/30/2023 5:39 AM 05/30/2023 9:48 AM Care Teams Deicer Kit Assembler Relationship Specialty Start Date End Date Darcy Mckeon MD [address] [place] [address] PCP - General Family Practice 05/13/23
--- OUTSIDE RECORDS SUMMARY | 2024-11-13 12:12 | XMS_ITS | Patient Health Summary ---
Author Organization [facility] Address [address] [place] [address] Care Team Providers Care Information Systems Coordinator Name Role Phone Torrey Giron MD Primary Care Provider [phone] Lennox Shell MD Unavailable [phone] Note from [facility],non-owned Affiliates and Associated Physician Practices is amultiple site organization consisting of ambulatory clinics and hospital sitesin [place], [place], [place] and [place]. This disclosure is being madepursuant to the Care Everywhere program and may not contain all information available regarding this patient. Last updated 18.[facility] Allergies * Celecoxib(Pt was told to take fpc anti inflammatories/pt agrees to pre op dose) * Penicillins Medications * Be aware that medications may not be up to date on this document. Alwaysverify current medications with the patient. * cyclobenzaprine (FLEXERIL) 10 MG tablet Take 10 mg by mouth 3 times daily as needed for Muscle Spasms * atorvastatin (LIPITOR) 40 MG tablet Take 40 mg by mouth at bedtime * glimepiride (AMARYL) 4 MG tablet Take 8 mg by mouth daily with breakfast * citalopram (CELEXA) 40 MG tablet Take by mouth once daily * gabapentin (NEURONTIN) 300 MG capsule Take 600 mg by mouth at bedtime * metFORMIN ER 24hr (GLUCOPHAGE XR) 500 MG tablet(Started 10/03/2015) 2,000 mg daily with dinner 2 refills left * pioglitazone (ACTOS) 45 MG tablet(Started 10/03/2015) 45 mg once daily 3 refills left * iron polysaccharides (NIFEREX 150) 150 MG capsule(Started 01/14/2016) Take 1 Cap by mouth once daily 1 refill left * INVOKANA 100 MG tablet(Started 01/07/2016) Take 100 mg by mouth once daily * oxyCODONE-acetaminophen (PERCOCET) 10-325 MG tablet(Started 03/29/2016) Take 0.5-1 Tabs by mouth every 6 hours as needed * metoprolol tartrate (LOPRESSOR) 25 MG tablet(Started 01/14/2016) Take 25 mg by mouth once daily 1 refill left Active Problems Problem Noted Date Diagnosed Date [...] Mass Index 36.8 03/28/2016 5:52 AM CDT Medical Devices Implanted Type Area Design Transferrer Device Identifier Shelf Expiration Date Model / Serial / Lot Gurpreet Bone [place] Hv Implanted:Qty: 1 on 01/11/2016 by Lennox Shell MD at [facility] Right: Knee [employer] 06/22/2017 [id number] / / [id number] Butn Pat Arcom Wire Polyeth Sm 31 X 8mm Implanted:Qty: 1 on 01/11/2016 by Lennox Shell MD at [facility] Right: Knee [employer] 11/09/2020 [id number] / / [id number] Tibial I Beam Fix Bar 75mm Implanted:Qty: 1 on 01/11/2016 by Lennox Shell MD at [facility] Right: Knee [employer] 10/26/2025 [id number] / / [id number] Ins Kn Vangurd Fem Cocr R-Intlok 70mm Implanted:Qty: 1 on 01/11/2016 by Lennox Shell MD at [facility] Right: Knee [employer] 12/10/2025 [id number] / / [id number] Vangrd Ant Stblzd Brg 10mm X 75mm Implanted:Qty: 1 on 01/11/2016 by Lennox Shell MD at [facility] Right: Knee [employer] 05/13/2020 [id number] / / [id number] Vangrd Ant Stblzd Brg 10mm X 75mm Implanted:Qty: 1 on 03/28/2016 by Lennox Shell MD at [facility] Left: Knee [employer] 10/04/2020 [id number] / / [id number] Gurpreet Bone [place] Hv Implanted:Qty: 1 on 03/28/2016 by Lennox Shell MD at [facility] Left: Knee [employer] 08/22/2017 [id number] / / [id number] Tibial I Beam Fix Bar 75mm Implanted:Qty: 1 on 03/28/2016 by Lennox Shell MD at [facility] Left: Knee [employer] 02/10/2026 [id number] / / [id number] Kn Ins Vangurd Fem Cocr Intlok L 67.5mm Implanted:Qty: 1 on 03/28/2016 by Lennox Shell MD at [facility] Left: Knee [employer] 01/30/2026 [id number] / / [id number] Butn Pat Arcom Wire Polyeth Sm 31 X 8mm Implanted:Qty: 1 on 03/28/2016 by Lennox Sehll MD at [facility] Left: Knee [employer] 01/23/2021 [id number] / / [id number] Procedures * XR KNEE LEFT 3VW(Performed 05/08/2016) Performed for Primary osteoarthritis of left knee * EKG 12-LEAD(Performed 03/30/2016) Performed for Primary osteoarthritis of left knee * GLUCOSE - POINT OF CARE(Performed 03/30/2016) * GLUCOSE - POINT OF CARE(Performed 03/30/2016) * HGB HCT PANEL(Performed 03/30/2016) * GLUCOSE - POINT OF CARE(Performed 03/29/2016) * GLUCOSE - POINT OF CARE(Performed 03/29/2016) * GLUCOSE - POINT OF CARE(Performed 03/29/2016) * GLUCOSE - POINT OF CARE(Performed 03/29/2016) * HGB HCT PANEL(Performed 03/29/2016) * GLUCOSE - POINT OF CARE(Performed 03/28/2016) * GLUCOSE - POINT OF CARE(Performed 03/28/2016) * GLUCOSE - POINT OF CARE(Performed 03/28/2016) * GLUCOSE - POINT OF CARE(Performed 03/28/2016) * GLUCOSE - POINT OF CARE(Performed 03/28/2016) * NEURAXIAL BLOCK(Performed 03/28/2016) * ARTHROPLASTY TOTAL KNEE(Performed 03/28/2016) * GLUCOSE - POINT OF CARE(Performed 03/28/2016) * HGB HCT PANEL(Performed 03/21/2016) Performed for Preoperative examination * CULTURE MSSA/MRSA(Performed 03/21/2016) Performed for Preoperative examination * XR KNEE LEFT 2VW OR LESS(Performed 02/27/2016) Performed for Primary osteoarthritis of right knee * XR KNEE RIGHT 3VW(Performed 02/27/2016) Performed for Primary osteoarthritis of right knee * LAB RESULTS ORDER(Performed 01/16/2016) * GLUCOSE - POINT OF CARE(Performed 01/14/2016) * GLUCOSE - POINT OF CARE(Performed 01/13/2016) * CT ANGIO CHEST PULM EMBOLISM(Performed 01/13/2016) Performed for Paroxysmal atrial tachycardia * TSH REFLEX FREE T4(Performed 01/13/2016) * GLUCOSE - POINT OF CARE(Performed 01/13/2016) * EKG 12-LEAD(Performed 01/13/2016) Performed for Paroxysmal atrial tachycardia * BASIC METABOLIC PANEL (CALCIUM TOTAL)(Performed 01/13/2016) * GLUCOSE - POINT OF CARE(Performed 01/13/2016) * HGB HCT PANEL(Performed 01/13/2016) * GLUCOSE - POINT OF CARE(Performed 01/12/2016) * GLUCOSE - POINT OF CARE(Performed 01/12/2016) * GLUCOSE - POINT OF CARE(Performed 01/12/2016) * GLUCOSE - POINT OF CARE(Performed 01/12/2016) * HGB HCT PANEL(Performed 01/12/2016) * GLUCOSE - POINT OF CARE(Performed 01/12/2016) * GLUCOSE - POINT OF CARE(Performed 01/11/2016) * GLUCOSE - POINT OF CARE(Performed 01/11/2016) * GLUCOSE - POINT OF CARE(Performed 01/11/2016) * GLUCOSE - POINT OF CARE(Performed 01/11/2016) * NEURAXIAL BLOCK(Performed 01/11/2016) * ARTHROPLASTY TOTAL KNEE(Performed 01/11/2016) * GLUCOSE - POINT OF CARE(Performed 01/11/2016) * COMPREHENSIVE METABOLIC PANEL(Performed 12/16/2015) Performed for Preop examination * CBC W AUTO DIFFERENTIAL(Performed 12/16/2015) Performed for Preop examination * CULTURE MSSA/MRSA(Performed 12/16/2015) Performed for Preop examination * EKG 12-LEAD(Performed 12/16/2015) Performed for Preop examination * XR KNEE RIGHT 3VW(Performed 03/08/2015) Performed for Knee pain, bilateral Results * XR KNEE 3 VW LEFT (05/08/2016 10:55 AM CDT) Anatomical Region Laterality Modality Lower Extremity Radiographic Josie ging Narrative 05/08/2016 11:36 AM CDT Verónica Yan 05/08/2016 11:36 AM Please see progress notes for result. Lennox Shell MD DIAGNOSTIC IMAGING O RDERABLES * EKG 12-LEAD (03/30/2016 1:52 PM CDT) Only the most recent of3 resultswithin the time period is included. Ventricular Rate 123 BPM [facility] Atrial Rate 123 BPM [facility] P-R Interval 124 ms [facility] QRS Duration ms 84 ms [facility] Q-T Interval ms 352 ms [facility] QTC Calculation (Bezet) 503 ms [facility] Calculated P [place] 44 degrees [facility] Calculated R [place] 83 degrees [facility] Calculated T [place] 26 degrees [facility] Interpretation EKG Sinus tachycardia Cannot rule out Anterior infarct (cited on or before 13-JAN-2016) Abnormal ECG Confirmed by DALE JOEL MD ([id number]) on 03/30/2016 2:11:54 PM [facility] 03/30/2016 1:52 PM CDT 03/30/2016 2:11 PM CDT Em Gamez MD ECG ORDERABLES Performing Organization Address City/[facility]/ZIP Co de Phone Number [facility] * (ABNORMAL) GLUCOSE - POINT OF CARE (03/30/2016 12:39 PM CDT) Only the most recent of26 resultswithin the time period is included. Glucose WB/POC 140(H) 70 - 106 mg/dL 03/30/2016 12:47 PM CDT [facility] Blood BLOOD SPECIMEN / Unknown 03/30/2016 12:39 PM CDT 03/30/2016 12:47 PM CDT Lennox Shell MD LAB - POINT OF CARE ORDERABLES Performing Organization Address City/[facility] Co de Phone Number [facility] [address] [place] [address] * (ABNORMAL) HGB HCT PANEL (03/30/2016 4:50 AM CDT) Only the most recent of5 resultswithin the time period is included. Hemoglobin 10.6(L) 12.0 - 15.6 gm/dL 03/30/2016 6:11 AM CDT [facility] Hematocrit 30.2(L) 35.9 - 45.5 % 03/30/2016 6:11 AM CDT [facility] Blood BLOOD SPECIMEN / Unknown 03/30/2016 4:50 AM CDT 03/30/2016 5:59 AM CDT Lennox Shell MD LAB - HEMATOLOGY ORD ERABLES Performing Organization Address City/[facility] Co de Phone Number [facility] [address] [place] [address] * NEURAXIAL BLOCK (03/28/2016 7:43 AM CDT) Narrative Daren Day APRN-CRNA - 03/28/2016 7:43 AM CDT Daren Day APRN-CRNA 03/28/2016 7:43 AM NEURAXIAL BLOCK Patient Location: OR Pre Procedure Indication: surgical anesthesia Anticoagulation /Antithrombosis Status Confirmed: Yes Preanesthetic Checklist: patient identified, IV checked, site marked, risks and benefits discussed, surgical consent verified, monitors and equipment checked, pre-op evaluation done, informed consent obtained and questions answered / anesthesia plan accepted Monitors: Pulse Ox Patient Condition: sedated, meaningful contact maintained throughout procedure Patient Position: sitting Procedure Block Performed: spinal Prep: Betadine Sterile Field: sterile gloves, sterile field established, cap/hat and mask Approach: midline Spinal Placement Site: L2-3 Number of Attempts: 1 Degree of Difficulty: none Block Performed by: kk Daren Day [facility] GENERAL ANESTH ESIA ORDERABLES * (ABNORMAL) CULTURE MSSA/MRSA (03/21/2016 10:50 AM CDT) Only the most recent of2 resultswithin the time period is included. Culture Negative for MRSA DEEPA 03/22/2016 2:19 PM CDT [facility] MICROBIOLOGY Culture Staphylococcus aureus (MSSA)(A) DEEPA 03/22/2016 2:19 PM CDT [facility]CRO[facility]OLOG[facility] Microbiology SPECIMEN FROM NASAL FOSSAE / Unknown 03/21/2016 10:50 AM CDT 03/21/2016 10:59 AM CDT Lennox Shell MD LAB - MICROBIOLOGY O COURT[place] [facility] MICROBIOLOGY [address] [place] [address], [facility] [phone] * XR KNEE 1 OR 2 VW LEFT (02/27/2016 3:55 PM CDT) Anatomical Region Laterality Modality Lower Extremity Radiographic Josie ging Narrative 02/27/2016 4:29 PM CDT Malika Orozco 02/27/2016 4:29 PM See progress notes for results Lennox Shell MD DIAGNOSTIC IMAGING O RDERABLES * XR KNEE 3 VW RIGHT (02/27/2016 3:31 PM CDT) Only the most recent of2 resultswithin the time period is included. Anatomical Region Laterality Modality Lower Extremity Radiographic Josie ging Narrative 02/27/2016 4:29 PM CDT Malika Orozco 02/27/2016 4:29 PM See progress notes for results Lennox Shell MD DIAGNOSTIC IMAGING O RDERABLES * LAB RESULTS ORDER (01/16/2016 9:24 PM CDT) Narrative 01/16/2016 9:24 PM CDT Ordered by an unspecified provider. Scanned Document LAB - THERAPEUTIC DR UG MONITORING ORDERABLES * CT CHEST PE (01/13/2016 6:26 PM CDT) Anatomical Region Laterality Modality Chest Computed Tomogra phy 01/13/2016 6:51 PM CDT Impressions 01/13/2016 6:53 PM CDT Negative for pulmonary embolism. Narrative 01/13/2016 6:[address] OF THE CHEST WITH IV CONTRAST - PULMONARY EMBOLISM PROTOCOL INDICATION: Supraventricular tachycardia, shortness of breath. TECHNIQUE: Axial images of the chest were made during the infusion of 80 mL Omnipaque 350 contrast, intravenously, as per the protocol for pulmonary embolism assessment. Sagittal and coronal reformatted images were performed with the CT scanner. This report was transcribed with a computerized speech recognition system. In an effort to expedite patient care, it has not been adjusted for typographical, grammatical or syntax problems by a trained certified medical assistant. For questions about the report, please contact the Radiology Department. FINDINGS: I do not see any large, central intra-arterial filling defects in the pulmonary arteries. The lung window images show small linear streaks of density in the posterior edge of the right lower lobe. No confluent infiltrates. No pleural effusion can be seen on the axial images. A 1.[address] density lesion is noted in the lateral edge of the right lobe of the liver. This has a CT density of 7.5 Hounsfield units which is in the range for a cyst but cannot be fully evaluated on this limited protocol study. The heart size is normal. Procedure Note Brendon Diaz MD - 01/13/2016 CT OF THE CHEST WITH IV CONTRAST - PULMONARY EMBOLISM PROTOCOL INDICATION: Supraventricular tachycardia, shortness of breath. TECHNIQUE: Axial images of the chest were made during the infusion of 80 mL Omnipaque 350 contrast, intravenously, as per the protocol for pulmonary embolism assessment. Sagittal and coronal reformatted images were performed with the CT scanner. This report was transcribed with a computerized speech recognition system. In an effort to expedite patient care, it has not been adjusted for typographical, grammatical or syntax problems by a trained certified medical assistant. For questions about the report, please contact the Radiology Department. FINDINGS: I do not see any large, central intra-arterial filling defects in the pulmonary arteries. The lung window images show small linear streaks of density in the posterior edge of the right lower lobe. No confluent infiltrates. No pleural effusion can be seen on the axial images. A 1.[address] density lesion is noted in the lateral edge of the right lobe of the liver. This has a CT density of 7.5 Hounsfield units which is in the range for a cyst but cannot be fully evaluated on this limited protocol study. The heart size is normal. IMPRESSION Negative for pulmonary embolism. Rosita Lujan MD CT ORDERABLES * TSH REFLEX FREE T4 (01/13/2016 2:41 PM CDT) TSH 2.49 0.358 - 3.740 ulU/mL 01/13/2016 3:16 PM CDT [facility] Blood BLOOD SPECIMEN / Unknown 01/13/2016 2:41 PM CDT 01/13/2016 2:46 PM CDT Rosita Lujan MD LAB - CHEMISTRY GHASSAN MESSINA [facility] Organization Address City/State/ZIP Co de Phone Number [facility] [address] [place] [address] * (ABNORMAL) BASIC METABOLIC PANEL (CALCIUM TOTAL) (01/13/2016 9:39 AM CDT) [facility] Glucose 217(H) 74 - 106 mg/dL 01/13/2016 10:03 AM CDT [facility] Sodium 133(L) 136 - 145 mmol/L 01/13/2016 10:03 AM CDT [facility] Potassium 3.9 3.5 - 5.1 mmol/L 01/13/2016 10:03 AM CDT [facility] Chloride 100 98 - 107 mmol/L 01/13/2016 10:03 AM CDT [facility] CO2 28 22 - 31 mmol/L 01/13/2016 10:03 AM CDT [facility] Calcium 9.1 8.5 - 10.1 mg/dL 01/13/2016 10:03 AM CDT [facility] Anion Gap 5 5 - 20 mmol/L 01/13/2016 10:03 AM CDT [facility] BUN 10 7 - 21 mg/dL 01/13/2016 10:03 AM CDT [facility] Creatinine 0.77 0.50 - 1.30 mg/dL 01/13/2016 10:03 AM CDT [facility] eGFR by MDRD >60 >60 mL/min/1.7 3m2 01/13/2016 10:03 AM CDT [facility] eGFR by MDRD >60 >60 mL/min/1.7 3m2 01/13/2016 10:03 AM T [facility] Blood BLOOD SPECIMEN / Unknown 01/13/2016 9:39 AM CDT 01/13/2016 9:44 AM CDT Rosita Lujan MD LAB - CHEMISTRY GHASSAN [facility] Organization Address City/State/[facility] Co de Phone Number [facility] [address] [place] [address] * NEURAXIAL BLOCK (01/11/2016 10:03 AM CDT) Narrative Daren Day APRN-CRNA - 01/11/2016 10:03 AM CDT SINGH [place] 01/11/2016 10:03 AM NEURAXIAL BLOCK Patient Location: OR Pre Procedure Indication: surgical anesthesia Anticoagulation /Antithrombosis Status Confirmed: Yes Preanesthetic Checklist: patient identified, IV checked, site marked, risks and benefits discussed, surgical consent verified, monitors and equipment checked, pre-op evaluation done, informed consent obtained and questions answered / anesthesia plan accepted Monitors: Pulse Ox Patient Condition: awake Patient Position: sitting Procedure Block Performed: spinal Prep: Betadine Sterile Field: sterile gloves, sterile field established, cap/hat and mask Approach: midline Skin Numbed with: lidocaine 1% Spinal Needle Type: Quincke Needle Gauge: 25 G Needle Length: 3.5 in Placement Site: L3-4 Number of Attempts: 2 Local Anesthetic: bupivacaine 0.75% in dextrose 2 Spinal Additive: fentanyl 25 mcg Events CSF return injection not painful no paresthesia no other event Degree of Difficulty: none Position Post Procedure: supine Vital signs monitored and stable throughout. See Anesthesia Intraop record for details. Block Performed by: !st attempt Amalia NORWOOD; 2nd attempt Shay CHAN Daren Day APRN-DENTAL SERVICE TECHNICIAN GENERAL ANESTH ESIA ORDERABLES * (ABNORMAL) CBC W AUTO DIFFERENTIAL (12/16/2015 10:00 AM CDT) WBC 11.1(H) 4.4 - 10.7 x10^9/L 12/16/2015 11:59 AM CDT [facility] WBC Corrected x10^9/L 12/16/2015 11:59 AM CDT [facility] RBC 3.99 3.80 - 5.20 x10^12/L 12/16/2015 11:59 AM CDT [facility] Hemoglobin 12.5 12.0 - 15.6 gm/dL 12/16/2015 11:59 AM CDT [facility] Hematocrit 36.8 35.9 - 45.5 % 12/16/2015 11:59 AM CDT [facility] MCV 92.2 80.7 - 98.3 fl 12/16/2015 11:59 AM CDT [facility] MCH 31.3 26.7 - 34.0 pg 12/16/2015 11:59 AM CDT [facility] MCHC 34.0 30.8 - 35.9 gm/dL 12/16/2015 11:59 AM CDT [facility] Platelet Count 364 153 - 416 x10^9/L 12/16/2015 11:59 AM CDT [facility] RDW-CV 12.2 12.1 - 14.9 % 12/16/2015 11:59 AM CDT [facility] MPV 10.5 9.4 - 12.9 fl 12/16/2015 11:59 AM CDT [facility] Neutrophils % 45.0 44.0 - 73.0 % 12/16/2015 11:59 AM CDT [facility] Lymphocytes % 44.8(H) 20.0 - 43.0 % 12/16/2015 11:59 AM CDT [facility] Monocytes % 6.7 5.0 - 13.0 % 12/16/2015 11:59 AM CDT [facility] Eosinophils % 2.2 0.0 - 6.0 % 12/16/2015 11:59 AM CDT [facility] Basophils % 0.8 0.0 - 2.0 % 12/16/2015 11:59 AM CDT [facility] Immature Granulocytes 0.5 0 - 1 % 12/16/2015 11:59 AM CDT [facility] Neutrophil Absolute 4.99 2.01 - 7.14 x10^9/L 12/16/2015 11:59 AM CDT [facility] Lymphocytes Absolute 4.95(H) 1.07 - 3.94 x10^9/L 12/16/2015 11:59 AM CDT [facility] Monocytes Absolute 0.74 0.26 - 1.07 x10^9/L 12/16/2015 11:59 AM CDT [facility] Eosinophils Absolute 0.24 0 - 0.47 x10^9/L 12/16/2015 11:59 AM CDT [facility] Basophils Absolute 0.09(H) 0 - 0.08 x10^9/L 12/16/2015 11:59 AM CDT [facility] Immature Granulocytes Absolute 0.05 0.00 - 0.06 x10^9/L 12/16/2015 11:59 AM CDT [facility] nRBC Auto 0 /100 WBC 12/16/2015 11:59 AM CDT [facility] Blood BLOOD SPECIMEN / Unknown 12/16/2015 10:00 AM CDT 12/16/2015 11:53 AM CDT Lennox Shell MD LAB - HEMATOLOGY ORD ERABLES [facility] [address] [place] [address] * (ABNORMAL) COMPREHENSIVE METABOLIC PANEL (12/16/2015 10:00 AM CDT) [facility] Signature Glucose 121(H) 74 - 106 mg/dL 12/16/2015 12:16 PM CDT [facility] Sodium 138 136 - 145 mmol/L 12/16/2015 12:16 PM CDT [facility] Potassium 4.2 3.5 - 5.1 mmol/L 12/16/2015 12:16 PM CDT [facility] Chloride 101 98 - 107 mmol/L 12/16/2015 12:16 PM CDT [facility] CO2 28 22 - 31 mmol/L 12/16/2015 12:16 PM CDT [facility] Calcium 9.2 8.5 - 10.1 mg/dL 12/16/2015 12:16 PM T [facility] Anion Gap 9 5 - 20 mmol/L 12/16/2015 12:16 PM CDT [facility] BUN 12 7 - 21 mg/dL 12/16/2015 12:16 PM T [facility] Creatinine 0.74 0.50 - 1.30 mg/dL 12/16/2015 12:16 PM T [facility] Alkaline Phosphatase 87 38 - 126 U/L 12/16/2015 12:16 PM CDT [facility] ALT 27 12 - 78 U/L 12/16/2015 12:16 PM CDT [facility] AST 17 5 - 40 U/L 12/16/2015 12:16 PM T [facility] Protein Total 7.3 6.4 - 8.2 gm/dL 12/16/2015 12:16 PM T [facility] Albumin 3.6 3.4 - 5.0 gm/dL 12/16/2015 12:16 PM T [facility] Bilirubin Total 0.3 0.2 - 1.0 mg/dL 12/16/2015 12:16 PM CDT [facility] eGFR by MDRD >60 >60 mL/min/1.7 3m2 12/16/2015 12:16 PM CDT [facility] eGFR by MDRD >60 >60 mL/min/1.7 3m2 12/16/2015 12:16 PM [facility] Blood BLOOD SPECIMEN / Unknown 12/16/2015 10:00 AM CDT 12/16/2015 11:53 AM CDT Lennox Shell MD LAB - CHEMISTRY GHASSAN MESSINA [facility] Organization Address City/State/ZIP Co de Phone Number [facility] [address] [place] [address] Care Teams Information Systems Coordinator Relationship Specialty Start Date End Date Torrey Giron MD [address] [place] [address] PCP - General Family Medicine 02/08/15 [place] [id number] [facility] [address] [place] [address] Orthopedic Surgery 03/08/15
--- OUTSIDE RECORDS SUMMARY | 2024-11-13 12:12 | XMS_ITS | Continuity of Care Document ---
Author Organization [facility] Address [address] [place] [address] Phone Care Team Providers Care Environmental Management Specialist Name Role Phone Ryland Reyes MD Unavailable Unavailable Allergies, Adverse Reactions, Alerts Substance Reaction Status Criticality Penicillins Anaphylaxis Active No Information Medications Medication Instructions Dosage Effective Dates (start - stop) Status Comments HYDROMORPHONE HCL (unknown strength) Not Available - Active GABAPENTIN (unknown strength) Not Available - Active CYCLOBENZAPRINE HCL (unknown strength) Not Available - Active METFORMIN HCL (unknown strength) Not Available - Active ATORVASTATIN CALCIUM (unknown strength) Not Available - Active PIOGLITAZONE HCL (unknown strength) Not Available - Active CITALOPRAM HBR (unknown strength) Not Available - Active GLIMEPIRIDE (unknown strength) Not Available - Active Procedures Procedure Date OFFICE/OUTPATIENT VISIT NEW Advance Directives Directive Yes / No Effective Date File Name No Information Encounters Encounter Description Practice Location Reason(s) For Visit Diagnoses Date Provider Providers Copied on Encounter OFFICE/OUTPA TIENT VISIT NEW [facility], [address] [address], [place], [address], tel:[phone] [facility] ObesityDegener ative joint disease of foot [address]. [address], [place], [id number] . tel: [phone] Referring Provider: Torrey Feng, [address], [place], [address]. tel:[phone] Family History Family Member Type Diagnosis Age At Onset Sister Problem (finding) congenital heart diseas e Mother Problem (finding) Arthritis Payers Payer name Insurance type Covered libertarian ID Authorluz hoyos(s) No Information Social History Type Description Quantity Date Captured Comments Alcohol Use Details No Caffeine Use Details Unknown Tobacco Use Status Ex-cigarette smoker 015 Smoking Status Former smoker Smoking Tobacco Use Details Cigarette: Age Stopped: 48 Cigarette: No Details Available Sex Female Vital Signs Date / Time: Height Weight BMI Pulse Rate Blood Pressure Temperature Respiratory Rate Body Surface Area Head Circumference Head Circ. Percentile Wt./Dillon. Percentile BMI percentile Pulse Ox Inhaled Ox 9:28 AM 72.00 in 115.666 kg (255.00 lbs) 34.5 8 kg/m eter (2) 109 /min 116/79 mm[Hg] Chief Complaint And Reason For Visit No Information Reason For Referral Reason For Referral No Information Plan Of Treatment Date Type Action Status Goal Dietary management education , guidance, and counseling completed Referral Ordered: RADEX FOOT COMPL MINIMUM 3 VIEWS Bilateral ordered History Of Present Illness Encounter Date Complaint History Of Prese nt Illness No Information Functional Status Date Functional Assessmen t No Information Instructions Date Instruction Additional Infor mation Dietary management e ducation, guidance, and counseling Related to Obesity, unspecified Home exercise program. Related t o Degenerative joint disease of foot Assessments Type Assessment Date assessment Obesity assessment Degenerative joint disease of fo ot Patient Care Teams Name Effective Dates (start - stop) Status Members No Information
--- OUTSIDE RECORDS SUMMARY | 2024-11-13 12:12 | XMS_ITS | Clinical Summary ---
Author Organization [facility] Address [address] [place] [address] Care Team Providers Care Keno Clerk Name Role Phone Unavailable Primary Care Provider Unavailabl e Social History Tobacco Use Types Packs/Day Years Used Date Smoking Tobacco: Never Assessed Comments Unknown Sex and Gender Information Value Date Recorded Sex Assigned at Not on file Legal Sex Female 5:59 PM CDT Gender Identity Not on file Sexual Orientation Not on file Plan of Treatment Health Maintenance Due Date Last Done Comments Cervical Cancer Screening Pa p Smear (Age 30 to 64) Every 3 Years 1965 Colorectal Cancer Screening Colonoscopy (10 Years) 1965 Annual Physical 01/02/1968 Hepatitis C 1983 DTaP, Tdap and Td Vaccines ( 1 - Tdap) 01/02/1984 Cervical Cancer Screening Pa p with HPV Testing (Age 30 to 64) Every 5 Years 1995 Cervical Cancer Screening with HPV 1995 Mammogram Screening 2005 Zoster Vaccines (1 of 2) 2015 COVID-19 Vaccine (2023-2 5 season) 2024 Influenza Adult (#1) 2024 Meningococcal B Vaccine Aged Out No l onger eligible based on patient's age to complete this topic Meningococcal Vaccine Aged Out No marcos ayaz eligible based on patient's age to complete this topic Pneumococcal Vaccine: Pediat rics (0 to 5 Years) and At-Risk Patients (6 to 64 Years) Aged Out No longer eligible b ased on patient's age to complete this topic RSV Immunizations Under 20 Months Aged Out No longer eligible based on patient's age to complete this topic
--- OUTSIDE RECORDS SUMMARY | 2024-11-13 12:12 | XMS_ITS | Referral Summary ---
Author Organization [facility] Address [facility] [place] [address] Care Team Providers Care Chemical Production Machine Operator Name Role Phone Torrey Giron MD Primary Care Provider [phone] Lennox Shell MD Unavailable [phone] Source Comments [facility],non-owned Affiliates and Associated Physician Practices is amultiple site organization consisting of ambulatory clinics and hospital sitesin [place], [place], [place] and [place]. This disclosure is being madepursuant to the Care Everywhere program and may not contain all information available regarding this patient. Last updated 18.[facility] Allergies Active Allergy Reactions Criticality Noted Date Comments Celecoxib 01/11/2016 Pt was told to take alf anti inflammatories/pt agrees to pre op dose [...] Mass Index 36.8 03/28/2016 5:52 AM CDT Functional Status Functional Status Response Date of Assess ment Is person deaf or have serious hearing difficult y? No 03/28/2016 Is person blind or have serious difficulty seein g? No 03/28/2016 Does person have serious dif ficulty walking/climbing stairs? No 03/28/2016 Does person have difficulty dressing/bathing? No 03/28/2016 Does person have difficulty doing errands alone? No 03/28/2016 Cognitive Status Response Date of Assessm ent Does person have difficulty concentrating/remembering/making decisions? No 03/28/2016 Plan of Treatment Not on file Medical Devices Implanted Type Area Gate Clerk Device Identifier Shelf Expiration Date Model / Serial / Lot Gurpreet Bone [place] Implanted:Qty: 1 on 01/11/2016 by Lennox Shell MD at [facility] Right: Knee [employer] 06/22/2017 [id number] / / [id number] Butn Pat Arcom Wire Polyeth Sm 31 X 8mm Implanted:Qty: 1 on 01/11/2016 by Lennox Shell MD at [facility] Right: Knee [employer] 11/09/2020 [id number] / / [id number] Ty Tibial I Beam Fix Bar 75mm Implanted:Qty: 1 on 01/11/2016 by Lennox Shell MD at [facility] Right: Knee [employer] 10/26/2025 [id number] / / [id number] Ins Kn Vangurd Fem Cocr R-Intlok 70mm Implanted:Qty: 1 on 01/11/2016 by Lennox Shell MD at [facility] Right: Knee [employer] 12/10/2025 [id number] / / [id number] Vangrd Ant Stblzd Brg 10mm X 75mm Implanted:Qty: 1 on 01/11/2016 by Lennox Shell MD at [facility] Right: Knee [employer] 05/13/2020 [id number] / / [id number] Vangrd Ant Stblzd Brg 10mm X 75mm Implanted:Qty: 1 on 03/28/2016 by Lennox Shell MD at [facility] Left: Knee [employer] 10/04/2020 [id number] / / [id number] Gurpreet Bone [place] Hv Implanted:Qty: 1 on 03/28/2016 by Lennox Shell MD at [facility] Left: Knee [employer] 08/22/2017 [id number] / / [id number] Ty Tibial I Beam Fix Bar 75mm Implanted:Qty: 1 on 03/28/2016 by Lennox Shell MD at [facility] Left: Knee [employer] 02/10/2026 [id number] / / [id number] Kn Ins Vangurd Fem Cocr Intlok L 67.5mm Implanted:Qty: 1 on 03/28/2016 by Lennox Shell MD at [facility] Left: Knee [employer] 01/30/2026 [id number] / / [id number] Butn Pat Arcom Wire Polyeth Sm 31 X 8mm Implanted:Qty: 1 on 03/28/2016 by Lennox Shell MD at [facility] Left: Knee [employer] 01/23/2021 [id number] / / [id number] Administered Medications Advance Directives Documents on File Type Date Recorded Patient Funeral Pre Need Consultant Expl anation Adv Directive/Living Will/POA 01/16/2016 9:23 PM * Full Code (Latest Code Status on File) Date Activated Date Inactivated Comments 03/28/2016 10:21 AM 03/30/2016 5:20 PM * Full Code Date Activated Date Inactivated Comments 01/11/2016 1:30 PM 01/14/2016 1:30 PM Care Teams Chemical Production Machine Operator Relationship Specialty Start Date End Date Torrey Giron MD [address] [place] [address] PCP - General Family Medicine 02/08/15 [place] [address] [address] Orthopedic Surgery 03/08/15
--- OUTSIDE RECORDS SUMMARY | 2024-11-13 12:12 | XMS_ITS | Continuity of Care Document ---
Author Organization [facility] Address [address] [place] [address] [address] [facility] [address] [place] [address] Phone Care Team Providers Care Personal Service Workers Name Role Phone Marcelle Khan Unavailable Unavailable Advance Directives Directive Yes / No Effective Date File Name No Information Encounters Encounter Description Practice Location Reason(s) For Visit Diagnoses Date Provider Providers Copied on Encounter [facility], [address], [place], [place], [id number], [place] tel:[phone] [facility] No Information [address]. [address], [place], [address], [place]. tel:[phone] Family History Family Member Type Diagnosis Age At Onset No Information Payers Payer name Insurance type Covered constitution party ID Authoriza tion(s) No Information Social History Type Description Quantity Date Captured Comments Sex Female Smoking Status No Information Chief Complaint And Reason For Visit No Information Reason For Referral Reason For Referral No Information History Of Present Illness Encounter Date Complaint History Of Prese nt Illness No Information Functional Status Date Functional Assessmen t No Information Instructions Date Instruction Additional Infor mation No Information Assessments Type Assessment Date No Information Patient Care Teams Name Effective Dates (start - stop) Status Members No Information
[2024-11-13 12:29] VITALS: BP 128/64; PULSE 102; RESP 18; TEMP 36.4; O2SAT 98
--- NOTE | 2024-11-13 14:18 | ED_ITS ---
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 Patient reports she has had URI sx's since Saturday, with cough, congestion, shortness of breath, wheezing. Has been using her inhaler more than usual. Yesterday began coughing up blood, reported having 3 episodes of hemoptysis yesterday and 2 more today. Contacted her PCP and was referred to the ED for further evaluation. Patient denies any previous history of blood clots. She is not on any anticoagulation. Denies recent epistaxis. Denies myalgias. Denies fever. Denies CP. Denies BLE swelling or pain. Denies abd pain, N/V. GENERAL: Well-appearing, morbidly obese with BMI of 47.4, and in no acute distress. HEAD: Normocephalic, atraumatic. CHEST: Clear to auscultation. ?No respiratory distress. No focal lung sounds or wheezing. HEART: Regular rate and rhythm.? NEURO: ?Alert and oriented x3. Patient screened in triage and initial orders placed.? ?Additional care and disposition to be based upon?diagnostic testing and treatment. <JENN Sebastian Last Filed: 11/13/24 14:32> Source: patient <JENN Sebastian Last Filed: 11/13/24 14:32> Mode of arrival: ambulatory <JENN Sebastian Last Filed: 11/13/24 14:32> Limitations: no limitations <JENN Sebastian Last Filed: 11/13/24 14:32> Related Data Home Medications: Home Medications ?Medication ?Instructions ?Recorded ?Confirmed ?Last Taken ?Type cholecalciferol (vitamin D3) 125 125 mcg PO DAILY 03/08/21 07/21/24 03/14/23 09:00 History mcg (5,000 unit) capsule multivitamin 1 tablet PO DAILY 03/08/21 07/21/24 03/14/23 09:00 History mecobalamin (vitamin B12) 5,000 5,000 mcg PO DAILY 04/01/23 07/21/24 Unknown History mcg chewable tablet <Ciara Morales PA-C - Last Filed: 11/13/24 14:32> Allergies/Adverse Reactions: Allergies Allergy/AdvReac Type Severity Reaction Status Date / Time Penicillins Allergy Severe Swelling Verified 11/13/24 12:31 <Ciara Morales PA-C - Last Filed: 11/13/24 14:32> Review of Systems 2 Review of Systems: CONSTITUTIONAL: Denies fever ENT: Reports congestion CARDIOVASCULAR: Denies chest pain RESPIRATORY: Reports cough. Denies dyspnea. <Karean Ga PA-C - Last Filed: 11/13/24 21:14> All systems reviewed & are unremarkable except as noted in HPI and below < Karena Ga PA-C - Last Filed: 11/13/24 21:14> [facility] Past Medical History Medical History: Medical History Dyfvrjp-Uwbtt-Hlsdr disease Chronic pain Chronic, continuous use of opioids Depression Frequent falls Gastroesophageal reflux disease History of tobacco abuse Hyperlipidemia Hypertension Peripheral neuropathy Type 2 diabetes mellitus <Ciara Morales PA-C - Last Filed: 11/13/24 14:32> Surgical History Surgical History: Surgical History History of arthroplasty of left knee (02/2016) History of arthroplasty of right knee (12/2015) History of bilateral cataract extraction (2020) History of section (07/2003) History of total hysterectomy (2009) <Ciara Morales PA-C - Last Filed: 11/13/24 14:32> Family History Family History: Family History Mother Family history of hypercholesterolemia Skin cancer Sibling Family history of cardiovascular disease Father Malignant neoplasm of prostate <Ciara Morales PA-C - Last Filed: 11/13/24 14:32> Social History Social History: Social History Social History: Surrogate medical decision maker: La Nena Adames, daughter. Code status: Full code. Smoking packs per day: 1 Smoking cigarettes per day: 20.0 Years smoked: 26 Smoking pack-years: 26.00 Smoking status: Current every day smoker Tobacco type: cigarettes and e-cigarettes/vaping Second hand tobacco smoke exposure: Yes Additional smoking assessment comments: Uses E-cigs Alcohol intake: never Substance use: never Substance use type: does not use Lack of Transportation: No Lack of Food: Never True Current Housing: I Have Housing Concerned About Future Housing: No Difficulty Paying Gas/Electric Bills: YES Difficulty Paying for Meds: YES Currently Unemployed: YES Education: High School Diploma/GED Difficulty w/ Childcare or Family Care: No Living arrangements: with family Additional living arrangements comments: . Currently living with sister and [id number] following the of her . Additional occupation/education comments: Disabled. Spiritual care concerns: No Agree to blood products: Yes <Ciara Morales PA-C - Last Filed: 11/13/24 14:32> Exam 2 Narrative: GENERAL: Well-appearing, well-nourished, and in no acute distress. HEAD: Normocephalic, atraumatic. EYES: EOMI. ENT: Nares clear, no rhinorrhea or epistaxis. Mucous membranes moist. Oropharynx without tonsillar hypertrophy exudate or other lesions. Bilateral TMs pearly durán non-bulging NECK: Supple. No adenopathy or masses. CHEST: Clear to auscultation. No respiratory distress. No wheezes rales or rhonchi HEART: Regular rate and rhythm. No murmur heard. Normal peripheral pulses. EXTREMITIES: Normal range of motion. No edema. SKIN: Warm, dry, no rash. NEURO: No focal deficits. Alert and oriented x3. PSYCH: Normal mood and affect <Karena Ga PA-C - Last Filed: 11/13/24 21:14> Course Course Emergency Course: patient updated on her workup and agrees with plan of care <Karena Ga PA-C - Last Filed: 11/13/24 21:14> Vital Signs Vital signs: Vital Signs Temperature 97.6 F 11/13/24 12:29 Pulse Rate 102 H 11/13/24 12:29 Respiratory Rate 18 11/13/24 12:29 Blood Pressure 128/64 11/13/24 12:29 Pulse Oximetry 98 11/13/24 12:29 Temperature 97.6 F 11/13/24 12:29 Pulse Rate 89 11/13/24 18:56 Respiratory Rate 22 H 11/13/24 18:56 Blood Pressure 131/71 11/13/24 18:56 Pulse Oximetry 97 11/13/24 18:56 Oxygen Delivery Room Air 11/13/24 17:41 <Ciara Morales PA-C - Last Filed: 11/13/24 14:32> Vital Signs Temperature 97.6 F 11/13/24 12:29 Pulse Rate 102 H 11/13/24 12:29 Respiratory Rate 18 11/13/24 12:29 Blood Pressure 128/64 11/13/24 12:29 Pulse Oximetry 98 11/13/24 12:29 Temperature 97.6 F 11/13/24 12:29 Pulse Rate 89 11/13/24 18:56 Respiratory Rate 22 H 11/13/24 18:56 Blood Pressure 131/71 11/13/24 18:56 Pulse Oximetry 97 11/13/24 18:56 Oxygen Delivery Room Air 11/13/24 17:41 <JENN Link Last Filed: 11/13/24 21:14> Vital Signs Temperature 97.6 F 11/13/24 12:29 Pulse Rate 102 H 11/13/24 12:29 Respiratory Rate 18 11/13/24 12:29 Blood Pressure 128/64 11/13/24 12:29 Pulse Oximetry 98 11/13/24 12:29 Temperature 97.6 F 11/13/24 12:29 Pulse Rate 89 11/13/24 18:56 Respiratory Rate 22 H 11/13/24 18:56 Blood Pressure 131/71 11/13/24 18:56 Pulse Oximetry 97 11/13/24 18:56 Oxygen Delivery Room Air 11/13/24 17:41 <Bandar Clifton MD - Last Filed: 11/13/24 18:24> Procedures EJ/Peripheral Line Arm L: EJ/Peripheral Line Date: 11/13/24 <Bandar Clifton MD - Last Filed: 11/13/24 18:24> EJ/Peripheral Line Time: 18:24 <Bandar Clifton MD - Last Filed: 11/13/24 18:24> Time Out Performed: Yes <Bandar Clifton MD - Last Filed: 11/13/24 18:24> Skin Cleansed in Sterile Fashion: Yes <Bandar Clifton MD - Last Filed: 11/13/24 18:24> Ultrasound Guided: Yes <Bandar Clifton MD - Last Filed: 11/13/24 18:24> Size (gauge): 20 <Bandar Clifton MD - Last Filed: 11/13/24 18:24> IV Secured and Dressing Applied: Yes <Bandar Clifton MD - Last Filed: 11/13/24 18:24> Patient Tolerated Procedure: well and no complications <Bandar Clifton MD - Last Filed: 11/13/24 18:24> MDM - URI/Sore Throat MDM Narrative Medical decision making narrative: MSE by SARAH in triage. <Ciara Morales PA-C - Last Filed: 11/13/24 14:32> MSE by SARAH in triage. Patient presents to the emergency department for hemoptysis. Oxygen saturation is normal on room air. Mildly tachycardic, this normalized without intervention. She has not had no episodes of hemoptysis in the ER. She is not on anticoagulation. Her blood pressure is stable. No concerning findings on blood work. CTA of the chest was obtained for further evaluation. No evidence for PE. Does show bilateral pneumonia. Patient resting comfortably. Updated on her workup. Will be started on oral antibiotics. She is to follow up with her primary provider. She was given warnings to return to the ER <Karena Ga PA-C - Last Filed: 11/13/24 21:14> Differential Diagnosis Differential diagnosis: Likely bronchitis and other (pneumonia, PE) <Karena Ga PA-C - Last Filed: 11/13/24 21:14> Lab Data Attestation: I reviewed the patient's lab results. <Karena Ga PA-C - Last Filed: 11/13/24 21:14> Result diagrams: 11/13/24 18:25 11/13/24 18:25 <Ciara Morales PA-C - Last Filed: 11/13/24 14:32> Labs: Lab Results 11/13/24 11/13/24 Range/Units 18:25 20:20 WBC 10.0 (4.5-10.0) K/mm3 RBC 4.55 (4.2-5.4) M/mm3 Hgb 13.4 (12.0-15.0) g/dL Hct 41.2 (37.0-47.0) % MCV 90.5 (80-100) fl MCH 29.5 (26-34) pg MCHC 32.5 (32-36) g/dl RDW 12.9 (11.5-14.5) % Plt Count 441 H (150-375) k/mm3 MPV 9.3 (7.4-10.4) fl Immature Gran % (Auto) 1.5 H (0-0.5) % Neut % (Auto) 54.5 (45.5-73.1) % Lymph % (Auto) 32.8 (18.3-44.2) % [place] % (Auto) 6.9 (2.6-8.5) % Eos % (Auto) 3.6 (0-4.4) % Baso % (Auto) 0.7 (0.2-1.2) % Lymph # (Auto) 3.28 H (0.9-3.2) K/mm3 [place] # (Auto) 0.7 H (0.1-0.6) K/mm3 Eos # (Auto) 0.4 H (0-0.3) K/mm3 Baso # (Auto) 0.1 (0.0-0.1) K/mm3 Abs Immat Gran (auto) 0.15 H (0.00-0.031) K/mm3 Absolute Neuts (auto) 5.4 (1.3-6.7) K/mm3 Absolute Nucleated RBC 0.000 (0.0-0.012) K/mm3 Nucleated RBC % 0.0 (0.0-0.2) % PT 14.0 (11.1-14.7) Seconds INR 1.1 APTT 35.0 (22.3-36.8) Seconds Sodium 137 (137-145) mmol/L Potassium 3.7 (3.4-5.0) mmol/L Chloride 100 (98-107) mmol/L Carbon Dioxide 27 (22-30) mmol/L Anion Gap 10 (4-12) mmol/L BUN 9 (7-17) mg/dL Creatinine 0.58 L (0.7-1.0) mg/dL Estim Creat Clear Calc 141 ml/min Estimated GFR > 60 (59 - ) Glucose 148 H (65-110) mg/dL POC Capillary Glucose 154 H (65-105) mg/dl Calcium 9.5 (8.4-10.2) mg/dL Total Bilirubin 0.7 (0.2-1.3) mg/dL AST 22 (14-36) U/L ALT 16 (6-35) U/L Alkaline Phosphatase 110 (38-126) U/L Troponin I < 0.012 (0.000-0.034) ng/mL Total Protein 8.0 (6.3-8.2) g/dL Albumin 4.2 (3.5-5.1) g/dL Influenza A (RT-PCR) Negative (Negative) Influenza B (RT-PCR) Negative (Negative) RSV (RT-PCR) Negative (Negative) SARS-CoV-2 RNA (RT-PCR) Negative (Negative) <Ciaar Morales PA-C - Last Filed: 11/13/24 14:32> Lab Results 11/13/24 11/13/24 Range/Units 18:25 20:20 WBC 10.0 (4.5-10.0) K/mm3 RBC 4.55 (4.2-5.4) M/mm3 Hgb 13.4 (12.0-15.0) g/dL Hct 41.2 (37.0-47.0) % MCV 90.5 (80-100) fl MCH 29.5 (26-34) pg MCHC 32.5 (32-36) g/dl RDW 12.9 (11.5-14.5) % Plt Count 441 H (150-375) k/mm3 MPV 9.3 (7.4-10.4) fl Immature Gran % (Auto) 1.5 H (0-0.5) % Neut % (Auto) 54.5 (45.5-73.1) % Lymph % (Auto) 32.8 (18.3-44.2) % [place] % (Auto) 6.9 (2.6-8.5) % Eos % (Auto) 3.6 (0-4.4) % Baso % (Auto) 0.7 (0.2-1.2) % Lymph # (Auto) 3.28 H (0.9-3.2) K/mm3 [place] # (Auto) 0.7 H (0.1-0.6) K/mm3 Eos # (Auto) 0.4 H (0-0.3) K/mm3 Baso # (Auto) 0.1 (0.0-0.1) K/mm3 Abs Immat Gran (auto) 0.15 H (0.00-0.031) K/mm3 Absolute Neuts (auto) 5.4 (1.3-6.7) K/mm3 Absolute Nucleated RBC 0.000 (0.0-0.012) K/mm3 Nucleated RBC % 0.0 (0.0-0.2) % PT 14.0 (11.1-14.7) Seconds INR 1.1 APTT 35.0 (22.3-36.8) Seconds Sodium 137 (137-145) mmol/L Potassium 3.7 (3.4-5.0) mmol/L Chloride 100 (98-107) mmol/L Carbon Dioxide 27 (22-30) mmol/L Anion Gap 10 (4-12) mmol/L BUN 9 (7-17) mg/dL Creatinine 0.58 L (0.7-1.0) mg/dL Estim Creat Clear Calc 141 ml/min Estimated GFR > 60 (59 - ) Glucose 148 H (65-110) mg/dL POC Capillary Glucose 154 H (65-105) mg/dl Calcium 9.5 (8.4-10.2) mg/dL Total Bilirubin 0.7 (0.2-1.3) mg/dL AST 22 (14-36) U/L ALT 16 (6-35) U/L Alkaline Phosphatase 110 (38-126) U/L Troponin I < 0.012 (0.000-0.034) ng/mL Total Protein 8.0 (6.3-8.2) g/dL Albumin 4.2 (3.5-5.1) g/dL Influenza A (RT-PCR) Negative (Negative) Influenza B (RT-PCR) Negative (Negative) RSV (RT-PCR) Negative (Negative) SARS-CoV-2 RNA (RT-PCR) Negative (Negative) <Karena Ga PA-C - Last Filed: 11/13/24 21:14> Lab Results 11/13/24 11/13/24 Range/Units 18:25 20:20 WBC 10.0 (4.5-10.0) K/mm3 RBC 4.55 (4.2-5.4) M/mm3 Hgb 13.4 (12.0-15.0) g/dL Hct 41.2 (37.0-47.0) % MCV 90.5 (80-100) fl MCH 29.5 (26-34) pg MCHC 32.5 (32-36) g/dl RDW 12.9 (11.5-14.5) % Plt Count 441 H (150-375) k/mm3 MPV 9.3 (7.4-10.4) fl Immature Gran % (Auto) 1.5 H (0-0.5) % Neut % (Auto) 54.5 (45.5-73.1) % Lymph % (Auto) 32.8 (18.3-44.2) % [place] % (Auto) 6.9 (2.6-8.5) % Eos % (Auto) 3.6 (0-4.4) % Baso % (Auto) 0.7 (0.2-1.2) % Lymph # (Auto) 3.28 H (0.9-3.2) K/mm3 [place] # (Auto) 0.7 H (0.1-0.6) K/mm3 Eos # (Auto) 0.4 H (0-0.3) K/mm3 Baso # (Auto) 0.1 (0.0-0.1) K/mm3 Abs Immat Gran (auto) 0.15 H (0.00-0.031) K/mm3 Absolute Neuts (auto) 5.4 (1.3-6.7) K/mm3 Absolute Nucleated RBC 0.000 (0.0-0.012) K/mm3 Nucleated RBC % 0.0 (0.0-0.2) % PT 14.0 (11.1-14.7) Seconds INR 1.1 APTT 35.0 (22.3-36.8) Seconds Sodium 137 (137-145) mmol/L Potassium 3.7 (3.4-5.0) mmol/L Chloride 100 (98-107) mmol/L Carbon Dioxide 27 (22-30) mmol/L Anion Gap 10 (4-12) mmol/L BUN 9 (7-17) mg/dL Creatinine 0.58 L (0.7-1.0) mg/dL Estim Creat Clear Calc 141 ml/min Estimated GFR > 60 (59 - ) Glucose 148 H (65-110) mg/dL POC Capillary Glucose 154 H (65-105) mg/dl Calcium 9.5 (8.4-10.2) mg/dL Total Bilirubin 0.7 (0.2-1.3) mg/dL AST 22 (14-36) U/L ALT 16 (6-35) U/L Alkaline Phosphatase 110 (38-126) U/L Troponin I < 0.012 (0.000-0.034) ng/mL Total Protein 8.0 (6.3-8.2) g/dL Albumin 4.2 (3.5-5.1) g/dL Influenza A (RT-PCR) Negative (Negative) Influenza B (RT-PCR) Negative (Negative) RSV (RT-PCR) Negative (Negative) SARS-CoV-2 RNA (RT-PCR) Negative (Negative) <Bandar Clifton MD - Last Filed: 11/13/24 18:24> Imaging Data Radiologist's impression: ITS Impressions Chest CTA 11/13/24 20:40 IMPRESSION: 1. No pulmonary embolus. 2. Bilateral pneumonia. 3. Moderate-sized sliding hiatal hernia. <JENN Link Last Filed: 11/13/24 21:14> ECG Data EKG #1: ECG completion date: 11/13/24 <JENN Link Last Filed: 11/13/24 21:14> EKG Interpretation: normal rate, sinus rhythm, no ST changes and normal QT <JENN Link Last Filed: 11/13/24 21:14> Critical Care Time Critical Care Time Critical Care Time: No <JENN Link Last Filed: 11/13/24 21:14> Discharge Plan Discharge Clinical Impression: Pneumonia Qualifiers: Pneumonia type: due to unspecified organism Laterality: bilateral Lung location: unspecified part of lung Qualified Code(s): J18.9 - Pneumonia, unspecified organism <JENN Sebastian Last Filed: 11/13/24 14:32> Patient Disposition: Home, Self-Care <JENN Sebastian Last Filed: 11/13/24 14:32> Condition: Stable <JENN Sebastian Last Filed: 11/13/24 14:32> Instructions: Antibiotic Form, Community Acquired Pneumonia (ED) <JENN Sebastian Last Filed: 11/13/24 14:32> Additional Instructions: Return to the emergency department for worsening symptoms, or any other concerns Remain well-hydrated, get plenty of rest. Take Tylenol or Motrin [id number] for pain as needed. Flonase for nasal congestion. Zyrtec for runny nose. Take oral antibiotics as prescribed Follow up with your primary care doctor <JENN Sebastian Last Filed: 11/13/24 14:32> Patient Language: Nepali <JENN Sebastian Last Filed: 11/13/24 14:32> Prescriptions: New levofloxacin 750 mg tablet 750 mg PO DAILY 4 Days Qty: 4 0RF No Action cholecalciferol (vitamin D3) 125 mcg (5,000 unit) capsule 125 mcg PO DAILY multivitamin Tablet 1 tablet PO DAILY gabapentin 300 mg capsule See Rx Instructions PO .COMPLEX Qty: 180 4RF Rx Instructions: 300mg PO in AM 300mg Mid day 300mg noon and 900mg PO HS ; Ozempic 0.25 mg or 0.5 mg (2 mg/3 mL) pen injector 0.25 mg subcut WEEKLY Qty: 9 1RF mecobalamin (vitamin B12) 5,000 mcg Tablet,Chewable 5,000 mcg PO DAILY pantoprazole 40 mg tablet,delayed release (DR/EC) See Rx Instructions .ROUTE .COMPLEX Qty: 180 2RF Dose Instruction: 40MG ORALLY TWICE A DAY Rx Instructions: 40MG ORALLY TWICE A DAY ezetimibe 10 mg tablet 10 mg PO DAILY Qty: 30 5RF metformin 500 mg tablet extended release 24 hr See Rx Instructions .ROUTE .COMPLEX Qty: 360 3RF Dose Instruction: TAKE 4 TABLETS BY MOUTH EVERY DAY WITH EVENING MEAL Rx Instructions: TAKE 4 TABLETS BY MOUTH EVERY DAY WITH EVENING MEAL citalopram 40 mg tablet See Rx Instructions .ROUTE .COMPLEX Qty: 90 3RF Dose Instruction: TAKE 1 TABLET EVERY DAY Rx Instructions: TAKE 1 TABLET EVERY DAY potassium chloride 10 mEq tablet extended release 10 meq PO BID Qty: 180 3RF Jardiance 10 mg tablet 10 mg PO DAILY Qty: 30 6RF folic acid 1 mg tablet 1 mg PO DAILY Qty: 100 3RF pioglitazone 45 mg tablet 45 mg PO DAILY Qty: 90 3RF glimepiride 2 mg tablet 2 mg PO QAM Qty: 90 3RF Rx Instructions: administer with breakfast cyclobenzaprine 10 mg tablet See Rx Instructions .ROUTE .COMPLEX PRN (Reason: Muscle Spasms) Qty: 90 6RF Rx Instructions: TAKE 1 TABLET THREE TIMES DAILY NEEDED FOR MUSCLE SPASM(S) hydromorphone 4 mg tablet 4 mg PO Q6H Qty: 120 0RF Rx Instructions: Take 1 AM, 1 Midmorning, 1 noon and 1 HS. metoclopramide HCl 5 mg tablet See Rx Instructions .ROUTE .COMPLEX Qty: 360 5RF Dose Instruction: TAKE 1 TABLET BEFORE MEALS AND AT BEDTIME Rx Instructions: TAKE 1 TABLET BEFORE MEALS AND AT BEDTIME albuterol sulfate [Ventolin HFA] 90 mcg/actuation HFA aerosol inhaler 1 inh INHALATION Q4H PRN (Reason: Wheezing) Qty: 18 3RF <Ciara Morales PA-C - Last Filed: 11/13/24 14:32> Follow-up/Referrals: Darcy Mckeon MD [Primary Care Provider] - <Ciara Morales PA-C - Last Filed: 11/13/24 14:32>
--- NOTE | 2024-11-13 14:26 | ECG_ITS ---
Test Date: 2024-11-13 16:32:55 Measurements Intervals [place] Rate: 95 P: 52 IL: 358 QRS: 79 QRSD: 95 T: 29 QT: 386 QTc: 487 Interpretive Statements SINUS RHYTHM INCOMPLETE RIGHT BUNDLE BRANCH BLOCK BORDERLINE ST-T WAVE ABNORMALITY- ANTEROLAT/INF LEADS BASELINE ARTIFACT- I, II, III, AVR, AVL, AVF, V1-V6 BORDERLINE ECG No previous ECG available for comparison Electronically Signed On 11-13-2024 16:44:50 CLINICAL RN by Derik Fang D.O.
[2024-11-13 17:41] VITALS: BP 129/82; PULSE 98; RESP 21; O2SAT 98
--- OUTSIDE RECORDS SUMMARY | 2024-11-13 18:16 | XMS_ITS | Clinical Summary ---
Author Organization [facility] Address [address] [place] [id number] Care Team Providers Care Coding Assistant Name Role Phone Unavailable Primary Care Provider [...]
--- OUTSIDE RECORDS SUMMARY | 2024-11-13 18:16 | XMS_ITS | Patient Health Summary ---
Author Organization [facility] Address [address] [place] [address] Care Team Providers Care Medical Social Consultant Name Role Phone Torrey Giron MD Primary Care Provider [phone] Lennox Shell MD Unavailable [phone] [facility],non-owned Affiliates and Associated Physician Practices is amultiple site organization consisting of ambulatory clinics and hospital sitesin [place], [place], [place] and [place]. This disclosure is being madepursuant to the Care Everywhere program and may not contain all information available regarding this patient. Last updated 18.[facility] Allergies * Celecoxib(Pt was told to take prison anti inflammatories/pt agrees to pre op dose) [...] AM CDT Medical Devices Implanted Type Area Brands Editor Device Identifier Shelf Expiration Date Model / Serial / Lot Gurpreet Bone [place] Implanted:Qty: 1 on 01/11/2016 by Lennox Shell MD at [facility] Right: Knee [employer] 06/22/2017 [id number] / / [id number] Butn Pat Arcom Wire Polyeth Sm 31 X 8mm Implanted:Qty: 1 on 01/11/2016 by Lennox Shell MD at [facility] Right: Knee [employer] 11/09/2020 [id number] / / [id number] Ty Tibial I Beam Fix Bar 75mm Implanted:Qty: 1 on 01/11/2016 by Lennox Shell MD at [facility] Right: Knee [employer] 10/26/2025 [id number] / / [id number] Ins Kn Vangurd Fem Cocr R-Intlok 70mm Implanted:Qty: 1 on 01/11/2016 by Lennox Shell MD at [facility] Right: Knee [employer] 12/10/2025 [id number] / / [id number] Vangrd Ant Stblzd Brg 10mm X 75mm Implanted:Qty: 1 on 01/11/2016 by Lennox Shell MD at [facility] Right: Knee [employer] 05/13/2020 [id number] / / [id number] Vangrd Ant Stblzd Brg 10mm X 75mm Implanted:Qty: 1 on 03/28/2016 by Lennox Shell MD at [facility] Left: Knee [employer] 10/04/2020 [id number] / / [id number] Gurpreet Bone [place] Hv Implanted:Qty: 1 on 03/28/2016 by Lennox Shell MD at [facility] Left: Knee [employer] 08/22/2017 [id number] / / [id number] Ty Tibial I Beam Fix Bar 75mm Implanted:Qty: 1 on 03/28/2016 by Lennox Shell MD at [facility] Left: Knee [employer] 02/10/2026 [id number] / / [id number] Kn Ins Vangurd Fem Cocr Intlok L 67.5mm Implanted:Qty: 1 on 03/28/2016 by Lennox Shell MD at [facility] Left: Knee [employer] 01/30/2026 [id number] / / [id number] Butn Pat Arcom Wire Polyeth Sm 31 X 8mm Implanted:Qty: 1 on 03/28/2016 by Lennox Shell MD at [facility] Left: Knee [employer] 01/23/2021 [id number] / / [id number] Procedures * XR KNEE LEFT 3VW(Performed 05/08/2016) [...] (Bezet) 503 ms [facility] MUSE Calculated P [place] 44 degrees [facility] MUSE Calculated R [place] 83 degrees [facility] MUSE Calculated T [place] 26 degrees [facility] MUSE Interpretation EKG Sinus tachycardia Cannot rule out Anterior infarct (cited on or before 13-JAN-2016) Abnormal ECG Confirmed by DALE JOEL MD ([id number]) on 03/30/2016 2:11:54 PM [facility] MUSE 03/30/2016 1:52 PM CDT 03/30/2016 2:11 PM CDT Em Gamez MD ECG ORDERABLES Performing Organization Address City/[facility]/ZIP Co de Phone Number [facility] MUSE * (ABNORMAL) GLUCOSE - POINT OF CARE (03/30/2016 12:39 PM CDT) Only the most recent of26 resultswithin the time period is included. Glucose WB/POC 140(H) 70 - 106 mg/dL 03/30/2016 12:47 PM CDT [facility] Blood BLOOD SPECIMEN / Unknown 03/30/2016 12:39 PM CDT 03/30/2016 12:47 PM CDT Lennox Shell MD LAB - POINT OF CARE ORDERABLES Performing Organization Address City/[facility] Co de Phone Number [facility] [address] [place] [address] * (ABNORMAL) HGB HCT PANEL (03/30/2016 4:50 AM CDT) Only the most recent of5 resultswithin the time period is included. Hemoglobin 10.6(L) 12.0 - 15.6 gm/dL 03/30/2016 6:11 AM CDT [facility] Hematocrit 30.2(L) 35.9 - 45.5 % 03/30/2016 6:11 AM CDT [facility] Blood BLOOD SPECIMEN / Unknown 03/30/2016 4:50 AM CDT 03/30/2016 5:59 AM CDT Lennox Shell MD LAB - HEMATOLOGY ORD ERABLES Performing Organization Address City/[facility] Co de Phone Number [facility] [address] [place] [address] * NEURAXIAL BLOCK (03/28/2016 7:43 AM CDT) [...] none Block Performed by: kk Daren Day APRNMETHODIST [facility] GENERAL ANESTH ESIA ORDERABLES * (ABNORMAL) CULTURE MSSA/MRSA (03/21/2016 10:50 AM CDT) Only the most recent of2 resultswithin the time period is included. Culture Negative for MRSA DEEPA 03/22/2016 2:19 PM CDT [facility] MICROBIOLOGY Culture Staphylococcus aureus (MSSA)(A) DEEPA 03/22/2016 2:19 PM CDT [facility] MICROBIOLOGY Microbiology SPECIMEN FROM NASAL FOSSAE / Unknown 03/21/2016 10:50 AM CDT 03/21/2016 10:59 AM CDT Lennox Shell MD LAB - MICROBIOLOGY O COURTNEY [facility] MICROBIOLOGY [address] [place] [address], [facility] [phone] * XR KNEE 1 OR 2 VW [...] grammatical or syntax problems by a trained medical billing coordinator. For questions about the report, please contact [...] grammatical or syntax problems by a trained medical billing coordinator. For questions about the report, please contact [...] - 3.740 ulU/mL 01/13/2016 3:16 PM CDT [facility] Blood BLOOD SPECIMEN / Unknown 01/13/2016 2:41 PM CDT 01/13/2016 2:46 PM CDT Rosita Lujan MD LAB - CHEMISTRY GHASSAN MESSINA [facility] Organization Address City/State/ZIP Co de Phone Number [facility] [address] [place] [address] * (ABNORMAL) BASIC METABOLIC PANEL (CALCIUM TOTAL) (01/13/2016 9:39 AM CDT) [facility] Glucose 217(H) 74 - 106 mg/dL 01/13/2016 10:03 AM CDT [facility] Sodium 133(L) 136 - 145 mmol/L 01/13/2016 10:03 AM CDT [facility] Potassium 3.9 3.5 - 5.1 mmol/L 01/13/2016 10:03 AM CDT [facility] Chloride 100 98 - 107 mmol/L 01/13/2016 10:03 AM CDT [facility] CO2 28 22 - 31 mmol/L 01/13/2016 10:03 AM CDT [facility] Calcium 9.1 8.5 - 10.1 mg/dL 01/13/2016 10:03 AM CDT [facility] Anion Gap 5 5 - 20 mmol/L 01/13/2016 10:03 AM CDT [facility] BUN 10 7 - 21 mg/dL 01/13/2016 10:03 AM CDT [facility] Creatinine 0.77 0.50 - 1.30 mg/dL 01/13/2016 10:03 AM CDT [facility] eGFR by MDRD >60 >60 mL/min/1.7 3m2 01/13/2016 10:03 AM CDT [facility] eGFR by MDRD >60 >60 mL/min/1.7 3m2 01/13/2016 10:03 AM T [facility] Blood BLOOD SPECIMEN / Unknown 01/13/2016 9:39 AM CDT 01/13/2016 9:44 AM CDT Rosita Lujan MD LAB - CHEMISTRY GHASSAN [facility] Organization Address City/State/[facility] Co de Phone Number [facility] [address] [place] [address] * NEURAXIAL BLOCK (01/11/2016 10:03 [...] [place]; 2nd attempt Shay CHAN Daren Day APRN-CABLE TELEVISION INSTALLER GENERAL ANESTH ESIA ORDERABLES * (ABNORMAL) CBC [...] - 12.9 fl 12/16/2015 11:59 AM CDT [facility] Neutrophils % 45.0 44.0 - 73.0 % 12/16/2015 11:59 AM CDT [facility] Lymphocytes % 44.8(H) 20.0 - 43.0 % 12/16/2015 11:59 AM CDT [facility] Monocytes % 6.7 5.0 - 13.0 % 12/16/2015 11:59 AM CDT [facility] Eosinophils % 2.2 0.0 - 6.0 % 12/16/2015 11:59 AM CDT [facility] Basophils % 0.8 0.0 - 2.0 % 12/16/2015 11:59 AM CDT [facility] Immature Granulocytes 0.5 0 - 1 % 12/16/2015 11:59 AM CDT [facility] Neutrophil Absolute 4.99 2.01 - 7.14 x10^9/L 12/16/2015 11:59 AM CDT [facility] Lymphocytes Absolute 4.95(H) 1.07 - 3.94 x10^9/L 12/16/2015 11:59 AM CDT [facility] Monocytes Absolute 0.74 0.26 - 1.07 x10^9/L 12/16/2015 11:59 AM CDT [facility] Eosinophils Absolute 0.24 0 - 0.47 x10^9/L 12/16/2015 11:59 AM CDT [facility] Basophils Absolute 0.09(H) 0 - 0.08 x10^9/L 12/16/2015 11:59 AM CDT [facility] Immature Granulocytes Absolute 0.05 0.00 - 0.06 x10^9/L 12/16/2015 11:59 AM CDT [facility] nRBC Auto 0 /100 WBC 12/16/2015 11:59 AM CDT [facility] Blood BLOOD SPECIMEN / Unknown 12/16/2015 10:00 AM CDT 12/16/2015 11:53 AM CDT Lennox Shell MD LAB - HEMATOLOGY ORD ERABLES [facility] [address] [place] [address] * (ABNORMAL) COMPREHENSIVE METABOLIC PANEL (12/16/2015 10:00 AM CDT) [facility] Signature Glucose 121(H) 74 - 106 mg/dL 12/16/2015 12:16 PM CDT [facility] Sodium 138 136 - 145 mmol/L 12/16/2015 12:16 PM CDT [facility] Potassium 4.2 3.5 - 5.1 mmol/L 12/16/2015 12:16 PM CDT [facility] Chloride 101 98 - 107 mmol/L 12/16/2015 12:16 PM CDT [facility] CO2 28 22 - 31 mmol/L 12/16/2015 12:16 PM CDT [facility] Calcium 9.2 8.5 - 10.1 mg/dL 12/16/2015 12:16 PM T [facility] Anion Gap 9 5 - 20 mmol/L 12/16/2015 12:16 PM CDT [facility] BUN 12 7 - 21 mg/dL 12/16/2015 12:16 PM T [facility] Creatinine 0.74 0.50 - 1.30 mg/dL 12/16/2015 12:16 PM T [facility] Alkaline Phosphatase 87 38 - 126 U/L 12/16/2015 12:16 PM CDT [facility] ALT 27 12 - 78 U/L 12/16/2015 12:16 PM CDT [facility] AST 17 5 - 40 U/L 12/16/2015 12:16 PM T [facility] Protein Total 7.3 6.4 - 8.2 gm/dL 12/16/2015 12:16 PM T [facility] Albumin 3.6 3.4 - 5.0 gm/dL 12/16/2015 12:16 PM T [facility] Bilirubin Total 0.3 0.2 - 1.0 mg/dL 12/16/2015 12:16 PM CDT [facility] eGFR by MDRD >60 >60 mL/min/1.7 3m2 12/16/2015 12:16 PM CDT [facility] eGFR by MDRD >60 >60 mL/min/1.7 3m2 12/16/2015 12:16 PM [facility] Blood BLOOD SPECIMEN / Unknown 12/16/2015 10:00 AM CDT 12/16/2015 11:53 AM CDT Lennox Shell MD LAB - CHEMISTRY GHASSAN MESSINA [facility] Organization Address City/State/ZIP Co de Phone Number [facility] [address] [place] [address] Care Teams Medical Social Consultant Relationship Specialty Start Date End Date Torrey Giron MD [address] [place] [address] PCP - General Family Medicine 02/08/15 [place] [address] [facility] [address] [place] [address] Orthopedic Surgery 03/08/15
--- OUTSIDE RECORDS SUMMARY | 2024-11-13 18:16 | XMS_ITS | Referral Summary ---
Author Organization [facility] Address [facility] [place] [address] Care Team Providers Care Steffen House Supervisor Name Role Phone Torrey Giron MD Primary Care Provider [phone] Lennox Shell MD Unavailable [phone] Source Comments [facility],non-owned Affiliates and Associated Physician Practices is amultiple site organization consisting of ambulatory clinics and hospital sitesin [place], [place], [place] and [place]. This disclosure is being madepursuant to the Care Everywhere program and may not contain all information available regarding this patient. Last updated 18.[facility] Allergies Active Allergy Reactions Criticality Noted Date Comments Celecoxib 01/11/2016 Pt was told to take correction anti inflammatories/pt agrees to pre op dose [...] on file Medical Devices Implanted Type Area Senior Portfolio Manager Device Identifier Shelf Expiration Date Model / Serial / Lot Gurpreet Bone [place] Hv Implanted:Qty: 1 on 01/11/2016 by Lennox Shell MD at [facility] Right: Knee [employer] 06/22/2017 [id number] / / [id number] Butn Pat Arcom Wire Polyeth Sm 31 X 8mm Implanted:Qty: 1 on 01/11/2016 by Lennox Shell MD at [facility] Right: Knee [employer] 11/09/2020 [id number] / / [id number] Ty Tibial I Beam Fix Bar 75mm Implanted:Qty: 1 on 01/11/2016 by Lennox Shell MD at [facility] Right: Knee [employer] 10/26/2025 [id number] / / [id number] Ins Kn Vangurd Fem Cocr R-Intlok 70mm Implanted:Qty: 1 on 01/11/2016 by Lennox Shell MD at [facility] Right: Knee [employer] 12/10/2025 [id number] / / [id number] Vangrd Ant Stblzd Brg 10mm X 75mm Implanted:Qty: 1 on 01/11/2016 by Lennox Shell MD at [facility] Right: Knee [employer] 05/13/2020 [id number] / / [id number] Vangrd Ant Stblzd Brg 10mm X 75mm Implanted:Qty: 1 on 03/28/2016 by Lennox Shell MD at [facility] Left: Knee [employer] 10/04/2020 [id number] / / [id number] Gurpreet Bone [place] Hv Implanted:Qty: 1 on 03/28/2016 by Lennox Shell MD at [facility] Left: Knee [employer] 08/22/2017 [id number] / / [id number] Ty Tibial I Beam Fix Bar 75mm Implanted:Qty: 1 on 03/28/2016 by Lennox Shell MD at [facility] Left: Knee [employer] 02/10/2026 [id number] / / [id number] Kn Ins Vangurd Fem Cocr Intlok L 67.5mm Implanted:Qty: 1 on 03/28/2016 by Lennox Shell MD at [facility] Left: Knee [employer] 01/30/2026 [id number] / / [id number] Butn Pat Arcom Wire Polyeth Sm 31 X 8mm Implanted:Qty: 1 on 03/28/2016 by Lennox Shell MD at [facility] Left: Knee [employer] 01/23/2021 -[id number] / / [id number] Administered Medications Insurance Payer Benefit Plan / Group Subscriber ID Effective Dates Phone Address Type HUMANA HUMANA MEDICARE ADV [id number] Effective for all dates [address] [address] [place] [id number] Medicare-Man aged Care HUMANA HUMANA MEDICARE ADV [id number] 2019-Pre sent [address] [address] [place] [address] Medicare-Man aged Care MEDICARE MEDICARE PART A AND B [id number] 2014-Pres ent [address] [place] [address] Medicare HUMANA MEDICARE HUMANA MEDICARE ADV HMO & PPO [id number] 2019-Pre sent [address] [address] [place] [address] Medicare-Man aged Care Advance Directives Documents on File Type Date Recorded Patient Under Water Assistant Expl anation Adv Directive/Living Will/POA 01/16/2016 9:23 PM * Full Code (Latest Code Status on File) Date Activated Date Inactivated Comments 03/28/2016 10:21 AM 03/30/2016 5:20 PM * Full Code Date Activated Date Inactivated Comments 01/11/2016 1:30 PM 01/14/2016 1:30 PM Care Teams Steffen House Supervisor Relationship Specialty Start Date End Date Torrey Giron MD [address] [place] [address] PCP - General Family Medicine 02/08/15 [place] [address] [address] Orthopedic Surgery 03/08/15
--- OUTSIDE RECORDS SUMMARY | 2024-11-13 18:16 | XMS_ITS | Clinical Summary ---
Author Organization [facility] Address [address] [place] [address] Phone Care Team Providers Care Poultry Feed Supervisor Name Role Phone Darcy Mckeon MD Primary Care Provider [phone] Allergies Active Allergy Reactions Criticality Noted Date [...] tablet 3 Active naloxone (NARCAN) 4 mg/spray [place], Non-Aerosol PLEASE SEE ATTACHED FOR DETAILED DIRECTIONS [...] (#1) 2024 Medical Devices Implanted Type Area Adolescent Medicine Specialist Device Identifier Shelf Expiration Date Model / Serial / Lot Quartz Miner Blasting Patient Intellis [id number] - [id number] Implanted:Qty: 1 on 05/30/2023 by Amira Covarrubias MD at [facility] Left: Back [employer]- NEUROLOGIC TECH 05/30/2033 [id number] / [id number] 1N / Controller Intellis Implanted:Qty: 1 on 05/30/2023 by Amira Covarrubias MD at [facility] [employer] [id number] / [id number] 2N / Description:ALL [employer] CO MPONENTS ON REQUISITION # [id number] Lead Surescan Vectris Mri [id number] - [id number] Implanted:Qty: 1 on 05/30/2023 by Amira Covarrubias MD at [facility] Lead Left: Back [employer]- NEUROLOGIC TECH 11/19/2026 [id number] / / [id number] Neurostimulator Intellis Adapterivestim Mri [id number] - [id number] Implanted:Qty: 1 on 05/30/2023 by Amira Covarrubias MD at [facility] Neuro Stimulator Right: Back [employer]- NEUROLOGIC TECH 04/05/2024 [id number] / [id number] / Neuro Absorbable Antibacterial Envelope Implanted:Qty: 1 on 05/30/2023 by Amira Covarrubias MD at [facility] N/A: Back [id number] / / [id number] Neuro Absorbable Antibacterial Envelope - Medium Implanted:Qty: 1 on 06/20/2023 by Amira Covarrubias MD at [facility] N/A: Back 03/09/2024 [id number] / / [id number] Description:Requisition # [id number]. Explanted Type Area Adolescent Medicine Specialist Device Identifier Shelf Expiration Date Model / Serial / Lot Spinal Cord Stimulator Generator And Percutaneous Electrode. Explanted:Qty: 1 on 05/30/2023 by Amira Covarrubias MD at [facility] N/A: Back Procedures Procedure Name Priority Date/Time Associated Diagnosis Comments HEMOGLOBIN A1C Routine 05/13/2023 9:15 AM CDT from Last 3 Months or Most Recently Relevant to Health Maintenance Results * (ABNORMAL) HEMOGLOBIN A1C (05/13/2023 9:15 AM CDT) HEMOGLOBIN A1C 5.7(H) <5.7 % 05/13/2023 11:16 AM CDT [facility] EST. AVG GLUCOSE, A1C 117 mg/dL 05/13/2023 11:16 AM CDT [facility] Blood Venipuncture / Unknown 05/13/2023 9:15 AM CDT 05/13/2023 10:25 AM CDT Narrative [facility] Palm [facility] - 05/13/2023 11:16 AM CDT HGB A1C INTERPRETATION NORMAL: <5.7% PRE-DIABETES: 5.7 - 6.4% DIABETES: 6.5% OR GREATER us Amira Covarrubias MD CHEMISTRY ORDERABLES Final Resu lt [facility] SERVICES [facility] CLIA# [id number] [address] [place] [address] from Last 3 Months or Most Recently Relevant to Health Maintenance Insurance [employer] PLUS [facility] MCR Advance Directives For more information, please contact: [phone] * Full Code (Latest Code Status on File) Date Activated Date Inactivated Comments 06/20/2023 5:40 AM 06/20/2023 11:59 AM * Full Code Date Activated Date Inactivated Comments 05/30/2023 9:48 AM 05/30/2023 2:24 PM * Full Code Date Activated Date Inactivated Comments 05/30/2023 5:39 AM 05/30/2023 9:48 AM Care Teams Poultry Feed Supervisor Relationship Specialty Start Date End Date Darcy Mckeon MD [address] [place] [address] PCP - General Family Practice 05/13/23
--- OUTSIDE RECORDS SUMMARY | 2024-11-13 18:16 | XMS_ITS | Clinical Summary ---
Author Organization [facility] Address [facility] [place] [address] Care Team Providers Care Waxing Machine Operator Name Role Phone Torrey Giron MD Primary Care Provider [phone] Lennox Shell MD Unavailable [phone] Source Comments [facility],non-owned Affiliates and Associated Physician Practices is amultiple site organization consisting of ambulatory clinics and hospital sitesin [place], [place], [place] and [place]. This disclosure is being madepursuant to the Care Everywhere program and may not contain all informatio navailable regarding this patient. Last updated 18.[facility] Allergies Active Allergy Reactions Criticality Noted Date Comments Celecoxib 01/11/2016 Pt was told to take fpc anti inflammatories/pt agrees to pre op dose [...] this topic Medical Devices Implanted Type Area Nurse Emergency Room Device Identifier Shelf Expiration Date Model / Serial / Lot Gurpreet Bone [place] Hv Implanted:Qty: 1 on 01/11/2016 by Lennox Shell MD at [facility] Right: Knee [employer] 06/22/2017 [id number] / / [id number] Butn Pat Arcom Wire Polyeth Sm 31 X 8mm Implanted:Qty: 1 on 01/11/2016 by Lennox Shell MD at [facility] Right: Knee [employer] 11/09/2020 [id number] / / [id number] Ty Tibial I Beam Fix Bar 75mm Implanted:Qty: 1 on 01/11/2016 by Lennox Shell MD at [facility] Right: Knee [employer] 10/26/2025 [id number] / / [id number] Ins Kn Vangurd Fem Cocr R-Intlok 70mm Implanted:Qty: 1 on 01/11/2016 by Lennox Shell MD at [facility] Right: Knee [employer] 12/10/2025 [id number] / / [id number] Vangrd Ant Stblzd Brg 10mm X 75mm Implanted:Qty: 1 on 01/11/2016 by Lennox Shell MD at [facility] Right: Knee [employer] 05/13/2020 [id number] / / [id number] Vangrd Ant Stblzd Brg 10mm X 75mm Implanted:Qty: 1 on 03/28/2016 by Lennox Shell MD at [facility] Left: Knee [employer] 10/04/2020 [id number] / / [id number] Gurpreet Bone [place] Hv Implanted:Qty: 1 on 03/28/2016 by Lennox Shell MD at [facility] Left: Knee [employer] 08/22/2017 [id number] / / [id number] Ty Tibial I Beam Fix Bar 75mm Implanted:Qty: 1 on 03/28/2016 by Lennox Shell MD at [facility] Left: Knee [employer] 02/10/2026 [id number] / / [id number] Kn Ins Vangurd Fem Cocr Intlok L 67.5mm Implanted:Qty: 1 on 03/28/2016 by Lennox Shell MD at [facility] Left: Knee [employer] 01/30/2026 [id number] / / [id number] Butn Pat Arcom Wire Polyeth Sm 31 X 8mm Implanted:Qty: 1 on 03/28/2016 by Lennox Shell MD at [facility] Left: Knee [employer] 01/23/2021 [id number] / / [id number] Advance Directives Documents on File Type Date Recorded Patient Electric Bath Attendant Expl anation Adv Directive/Living Will/POA 01/16/2016 9:23 PM * Full Code (Latest Code Status on File) Date Activated Date Inactivated Comments 03/28/2016 10:21 AM 03/30/2016 5:20 PM * Full Code Date Activated Date Inactivated Comments 01/11/2016 1:30 PM 01/14/2016 1:30 PM Care Teams Waxing Machine Operator Relationship Specialty Start Date End Date Torrey Giron MD [address], [place] [id number] PCP - General Family Medicine 02/08/15 [place] [address] [address] Orthopedic Surgery 03/08/15
[2024-11-13 18:32] VITALS: BP 131/71; PULSE 91; RESP 12; O2SAT 99
[2024-11-13 18:33] LABS: Basophils Absolute Auto 0.1 K/mm3 (0.0-0.1); Basophils Percent Auto 0.7 % (0.2-1.2); Eosinophils Absolute Auto 0.4 K/mm3 (0-0.3); Eosinophils Percent Auto 3.6 % (0-4.4); Hematocrit 41.2 % (37.0-47.0); Hemoglobin 13.4 g/dL (12.0-15.0); Immature Granulocyte Absolute 0.15 K/mm3 (0.00-0.031); Immature Granulocyte Percent A 1.5 % (0-0.5); Lymphocytes Absolute Auto 3.28 K/mm3 (0.9-3.2); Lymphocytes Percent Auto 32.8 % (18.3-44.2); Mean Corpuscular HGB Conc 32.5 g/dl (32-36); Mean Corpuscular Hemoglobin 29.5 pg (26-34); Mean Corpuscular Volume 90.5 fl (80-100); Mean Platelet Volume 9.3 fl (7.4-10.4); Monocytes Absolute Auto 0.7 K/mm3 (0.1-0.6); Monocytes Percent Auto 6.9 % (2.6-8.5); Neutrophils Absolute Auto 5.4 K/mm3 (1.3-6.7); Neutrophils Percent Auto 54.5 % (45.5-73.1); Platelet Count Result 441 k/mm3 (150-375); Red Blood Count 4.55 M/mm3 (4.2-5.4); Red Cell Distribution Width 12.9 % (11.5-14.5)
[2024-11-13 18:42] LABS: Alanine Aminotransferase 16 U/L (6-35); Albumin Level 4.2 g/dL (3.5-5.1); Alkaline Phosphatase 110 U/L (38-126); Anion Gap 10 mmol/L (4-12); Aspartate Amino Transferase 22 U/L (14-36); Bilirubin,Total 0.7 mg/dL (0.2-1.3); Blood Urea Nitrogen 9 mg/dL (7-17); Calcium 9.5 mg/dL (8.4-10.2); Carbon Dioxide 27 mmol/L (22-30); Chloride 100 mmol/L (98-107); Estimated CRCL calculation 141 ml/min; Estimated Glomerular Filt Rate > 60; Glucose 148 mg/dL (65-110); Potassium 3.7 mmol/L (3.4-5.0); Sodium 137 mmol/L (137-145)
[2024-11-13 18:48] LABS: INR 1.1
[2024-11-13 18:54] LABS: Troponin I < 0.012 ng/mL (0.000-0.034)
[2024-11-13 18:56] VITALS: BP 131/71; PULSE 89; RESP 22; O2SAT 97
[2024-11-13 19:08] LABS: Influenza A QL RT-PCR Negative (Negative); Influenza B QL RT-PCR Negative (Negative); RSV RNA, RT-PCR Negative (Negative); SARS-CoV-2 RNA PCR Negative (Negative)
--- NOTE | 2024-11-13 20:18 | PC.NURSE ---
CT notified of US placed line in room H3 for ordered CTA.
[2024-11-13 20:23] LABS: Glucose Point of Care 154 mg/dl (65-105)
[2024-11-13] MEDS: levoFLOXacin 750 MG TABLET PO (21:31)
[2024-11-13 21:34] VITALS: BP 123/78; PULSE 68; RESP 18; O2SAT 100
[2024-11-16 08:51] LABS: Estimated CRCL calculation 119 ml/min; Estimated Glomerular Filt Rate > 60
== END 2024-11-13 21:37 | disposition home or self-care (01) ==
PROVIDERS: Physician Assistant; Emergency Provider Physician Assistant; PCP Family Medicine
DX: J18.9 Pneumonia, unspecified organism (principal); Z20.822 Contact with and (suspected) exposure to COVID-19; I10 Essential (primary) hypertension; E66.01 Morbid (severe) obesity due to excess calories; Z68.42 Body mass index [BMI] 45.0-49.9, adult; E78.5 Hyperlipidemia, unspecified; E11.42 Type 2 diabetes mellitus with diabetic polyneuropathy; G60.0 Hereditary motor and sensory neuropathy; K21.9 Gastro-esophageal reflux disease without esophagitis; F32.A Depression, unspecified; F17.210 Nicotine dependence, cigarettes, uncomplicated; F17.290 Nicotine dependence, other tobacco product, uncomplicated; Z96.653 Presence of artificial knee joint, bilateral; Z98.42 Cataract extraction status, left eye; Z98.41 Cataract extraction status, right eye; Z90.710 Acquired absence of both cervix and uterus; K44.9 Diaphragmatic hernia without obstruction or gangrene; Z79.85 Long-term (current) use of injectable non-insulin antidiabetic drugs; Z79.84 Long term (current) use of oral hypoglycemic drugs; Z79.899 Other long term (current) drug therapy; I45.10 Unspecified right bundle-branch block; R94.31 Abnormal electrocardiogram [ECG] [EKG]
CPT/HCPCS: 36415; 71275; 80053; 82565; 82948; 84484; 85025; 85610; 85730; 87637; 93005; 99284; A9270; Q9967

== ENCOUNTER 2025-04-23 14:15 | Outpatient (CLI) | payer MEDICARE, SELFPAY ==
--- NOTE | ~2025-04-23 | MM_ITS ---
EXAMINATION: MM screening [facility] BI w marian HISTORY: Screening TECHNIQUE: Craniocaudal and mediolateral oblique 3-D tomosynthesis images were obtained and synthetic 2-D images were generated. CAD analysis was submitted and interpreted. COMPARISON: Comparison to multiple prior studies sequentially, with oldest reviewed study dated 10/13. BREAST PARENCHYMAL COMPOSITION: Not Dense: The breasts are almost entirely fatty. FINDINGS: There is no evidence of suspicious mass, calcification, or architectural distortion to sugg est malignancy in either breast. There has been no suspicious interval change. IMPRESSION: 1. No mammographic evidence of malignancy. 2. Recommend routine screening mammography in one year. BI-RADS Category 1: Negative Reviewed, dictated and finalized at location B.
--- OUTSIDE RECORDS SUMMARY | 2025-04-23 14:18 | XMS_ITS | Clinical Summary ---
Author Organization [facility] Address [address] [place] [id number] Care Team Providers Care Flexographic Press Plate Setter Name Role Phone Unavailable Primary Care Provider [...] Screening with HPV 1995 Mammogram Screening 2005 Pneumococcal Vaccine: 50+ Ye ars (1 of 1 - PCV) 2015 Zoster Vaccines (1 of 2) 2015 COVID-19 Vaccine (2023-2 5 season) 2024 RSV Immunization or 60+ Years (1 - 1-dose 75+ series) 01/02/2040 Meningococcal B Vaccine Aged Out No l onger eligible based on patient's age to complete this topic Meningococcal Vaccine Aged Out No marcos ayaz eligible based on patient's age to complete this topic RSV Immunizations Under 20 Months Aged Out No longer eligible based on patient's age to complete this topic
== END 2025-04-23 14:16 | disposition home or self-care (01) ==
LOC: ANHIMG 14:16
PROVIDERS: PCP Family Medicine; Visit Provider Family Medicine
DX: Z12.31 Encounter for screening mammogram for malignant neoplasm of breast (principal)
CPT/HCPCS: 77063; 77067